=== PATIENT | male | born 1975 | race African-American/Black ===

== ENCOUNTER 2017-04-03 02:55 | Emergency (ER) | payer BC ==
[~2017-04-03] VITALS: Ht 185.4 cm; Wt 100.2 kg
[2017-04-03 02:59] VITALS: TEMP 36.6; Ht 185.4 cm; Wt 100.2 kg
--- NOTE | 2017-04-03 04:00 | EMERGENCY ROOM VISIT NOTE ---
History Report prepared by Holly: Dominik Hackett Under the Supervision of: Dr. Jillian Mills M.D. First contact with patient: 03:09 Chief Complaint: ARM PAIN Stated Complaint: TINGLING IN ARMS History of Present Illness The patient is a 41 year old male who presents to the Emergency Room with complaints of constant right arm tingling for the past two weeks. The patient additionally states that there is a shooting pain in his arm, and the pain is worsened when lifting the arm. He denies any chest pain or shortness of breath. The patient additionally states that he was having a cold sensation in his arm, and his leg had a similar tingling sensation yesterday. He states that he recently had a cold, and he has been coughing up phlegm for the past six weeks. He denies any difficulty walking or speaking. The patient additionally states that he was recently in [place], though the pain started before this trip. He states that he has no other medical problems. The patient denies any leg swelling or history of blood clots. Source of History: patient Onset: two weeks ago Position: arm (right) Quality: tingling, other (shooting) Timing: constant Associated Symptoms: + cough, No chest pain, No SOB Note: Associated symptoms: Leg tingling Review of Systems See HPI for pertinent positives & negatives. A total of 10 systems reviewed and were otherwise negative. Past Medical & Surgical Medical Problems: (1) Sleep apnea Social History Smoking Status: Never Smoker Marital Status: Housing Status: lives with family Occupation Status: employed Current/Historical Medications Scheduled Cefdinir (Omnicef), 300 MG PO Q12H Prednisone Tab (Prednisone), 10 MG PO DIRECTED Scheduled PRN Tramadol (Ultram), 1-2 TABS PO Q6 PRN for Pain Allergies Coded Allergies: Penicillins (Verified Allergy, Unknown, hives, 04/03/17) Physical Exam Vital Signs Date Time Temp Pulse Resp B/P (MAP) Pulse Ox O2 Delivery O2 Flow Rate FiO2 04/03/17 05:53 54 18 149/87 98 04/03/17 05:48 67 99 04/03/17 05:43 51 15 100 04/03/17 05:38 51 15 98 04/03/17 05:31 142/77 04/03/17 05:23 52 15 99 04/03/17 05:18 51 16 98 8/11/17 05:15 137/97 04/03/17 05:03 54 16 98 04/03/17 05:01 150/88 04/03/17 04:48 51 14 95 04/03/17 04:44 57 96 04/03/17 04:43 145/103 04/03/17 04:40 51 16 99 04/03/17 04:10 59 21 100 04/03/17 04:01 123/87 04/03/17 03:57 58 04/03/17 03:44 128/91 04/03/17 02:59 36.6 61 20 144/99 97 Room Air Physical Exam Vital signs reviewed. General: Well-appearing male, in no significant distress. HEENT: No scleral icterus, PERRLA, neck supple. Atraumatic. Cardiovascular: Regular rate and rhythm, no extra sounds. Pulmonary: Clear to auscultation bilaterally, normal work of breathing. Abdomen: Soft, nontender, nondistended, positive bowel sounds. Musculoskeletal: Atraumatic, no peripheral edema. Neurologic: Patient awake alert and oriented x 3, full strength in all 4 extremities. Cranial nerves 2 through 12 grossly intact. Skin: Warm, dry, no rash Medical Decision & Procedures ER Provider Diagnostic Interpretation: X-ray results as stated below per interpretation by me: CHEST: No acute abnormalities. No evidence of failure. No focal lung consolidation. CT results as stated below per my review and radiologist interpretation: CT HEAD: No acute intracranial hemorrhage. No evidence of intracranial mass, extra fluid collection, or acute territorial infarct. Mild paranasal sinus mucosal thickening. Small amount of fluid in maxillary sinuses. Correlate for sinusitis. CT C SPINE: C5-C6, posterior disc/osteophyte complex and uncovertebral osteophytes cause mild canal and mild to moderate foraminal narrowing. C6-C7, posterior disc/osteophyte complex causes mild canal narrowing. No evidence of fracture or subluxation. Laboratory Results 04/03/17 03:50 Red Blood Count 4.66, Mean Corpuscular Volume 92.5, Mean Corpuscular Hemoglobin 31.1, Mean Corpuscular Hemoglobin Concent 33.6, Mean Platelet Volume 12.0, Neutrophils (%) (Auto) 35.6, Lymphocytes (%) (Auto) 52.7, Monocytes (%) (Auto) 4.3, Eosinophils (%) (Auto) 6.9, Basophils (%) (Auto) 0.3, Neutrophils # (Auto) 2.07, Lymphocytes # (Auto) 3.07, Monocytes # (Auto) 0.25, Eosinophils # (Auto) 0.40, Basophils # (Auto) 0.02 04/03/17 03:50 Test 04/03/17 03:50 04/03/17 03:58 White Blood Count 5.82 K/uL (4.8-10.8) Red Blood Count 4.66 M/uL (4.7-6.1) Hemoglobin 14.5 g/dL (14.0-18.0) Hematocrit 43.1 % (42-52) Mean Corpuscular Volume 92.5 fL (80-100) Mean Corpuscular Hemoglobin 31.1 pg (25-34) Mean Corpuscular Hemoglobin Concent 33.6 g/dl (32-36) Platelet Count 149 K/uL (130-400) Mean Platelet Volume 12.0 fL (7.4-10.4) Neutrophils (%) (Auto) 35.6 % Lymphocytes (%) (Auto) 52.7 % Monocytes (%) (Auto) 4.3 % Eosinophils (%) (Auto) 6.9 % Basophils (%) (Auto) 0.3 % Neutrophils # (Auto) 2.07 K/uL (1.4-6.5) Lymphocytes # (Auto) 3.07 K/uL (1.2-3.4) Monocytes # (Auto) 0.25 K/uL (0.11-0.59) Eosinophils # (Auto) 0.40 K/uL (0-0.5) Basophils # (Auto) 0.02 K/uL (0-0.2) RDW Standard Deviation 43.2 fL (36.4-46.3) RDW Coefficient of Variation 12.9 % (11.5-14.5) Immature Granulocyte % (Auto) 0.2 % Immature Granulocyte # (Auto) 0.01 K/uL (0.00-0.02) Nucleated RBC Absolute Count (auto) 0.04 K/uL (0-0) Nucleated Red Blood Cells % 0.7 % Anion Gap 6.0 mmol/L (3-11) Est Creatinine Clear Calc Drug Dose 108.9 ml/min Estimated GFR () 95.5 Estimated GFR (Non- 82.4 BUN/Creatinine Ratio 9.3 (10-20) Calcium Level 8.6 mg/dl (8.5-10.1) Magnesium Level 2.2 mg/dl (1.8-2.4) Total Bilirubin 1.3 mg/dl (0.2-1) Direct Bilirubin 0.2 mg/dl (0-0.2) Aspartate Amino Transf (AST/SGOT) 21 U/L (15-37) Alanine Aminotransferase (ALT/SGPT) 32 U/L (12-78) Alkaline Phosphatase 73 U/L (45-117) Total Creatine Kinase 287 U/L (39-308) Creatine Kinase MB 0.6 ng/ml (0.5-3.6) Creatine Kinase MB Ratio 0.2 (0-3.0) Total Protein 7.3 gm/dl (6.4-8.2) Albumin 3.6 gm/dl (3.4-5.0) Thyroid Stimulating Hormone (TSH) 1.170 uIu/ml (0.300-4.500) Bedside Troponin I < 0.030 ng/ml (0-0.045) Laboratory results per my review. ECG Indication: other (Arm pain) Rate (beats per minute): 55 Rhythm: sinus bradycardia Findings: no acute ischemic change, other (T-wave flattening in the inferior and lateral leads) ED Course 0309: Past medical records reviewed. The patient was evaluated in room B12. A complete history and physical examination was performed. 0530: Upon reevaluation, the patient appeared to have improvement of his symptoms. I discussed findings with him. He verbalized agreement of the treatment plan. He was discharged home. Medical Decision Differential Diagnoses: Cervical radiculopathy, metabolic abnormality, CVA, paraesthesia, and peripheral nerve irritation This patient was evaluated and appeared to be in no significant distress. Physical examination is fairly unrevealing. EKG reveals a sinus bradycardia. CT scan of the head was performed due to the concern over right arm and right leg symptoms. CT scan is negative for acute intracranial findings. CT scan of the neck reveals foraminal narrowing and an osteophyte complex at the C5-C6 and C6-C7 levels. This is likely causing some cervical radiculopathy. The patient is also found to have maxillary sinus air-fluid levels which explains the patient's concerns over cold symptoms for 6 weeks. The patient will be placed on a prednisone taper which will likely address both radiculopathy and the sinusitis as well as Omnicef 10 days. Patient was informed of the findings. He was given a copy of his CT scan read by radiology. He'll follow-up with his primary care physician for reevaluation this week. He will return to the ER for worsening of symptoms or any medical concerns. Medication Reconcilliation Current Medication List: was personally reviewed by me Blood Pressure Screening Patient's blood pressure: Elevated blood pressure Blood pressure disposition: Referred to PCP Impression Primary Impression: Cervical radiculopathy Additional Impression: Sinusitis Scribe Attestation The scribe's documentation has been prepared under my direction and personally reviewed by me in its entirety. I confirm that the note above accurately reflects all work, treatment, procedures, and medical decision making performed by me. Departure Information Dispostion Home / Self-Care Prescriptions Prednisone Tab (PREDNISONE) 10 Mg Tab 10 MG PO DIRECTED, #31 TAB Prov: Jillian Mills M.D. 04/03/17 Tramadol (Ultram) 50 Mg Tab 1-2 TABS PO Q6 Y for Pain, #20 TAB Prov: Jillian Mills M.D. 04/03/17 Cefdinir (Omnicef) 300 Mg Cap 300 MG PO Q12H for 10 Days, #20 CAP Prov: Jillian Mills M.D. 04/03/17 Referrals Heather Lujan (PCP) Forms HOME CARE DOCUMENTATION FORM, IMPORTANT VISIT INFORMATION Patient Instructions My [facility] Additional Instructions Diagnosis: Cervical radiculopathy, sinusitis Prednisone 40 mg for 4 days, 30 mg for 3 days, 20 mg for 2 days, 10 mg for 2 days Omnicef 300 mg twice daily for 10 days. Watch for rash/allergic symptoms. If these occur, stop drug immediately Ultram 1-2 tabs every 6 hours as needed for pain. Follow up with your PCP this week for reevaluation. Have your blood pressure rechecked. Return to the ED for worsening of symptoms or any medical concerns. Problem Qualifiers
[2017-04-03 04:08] LABS: HEMATOCRIT 43.1 % (42-52); MEAN CELL VOLUME 92.5 fL (80-100); MEAN CORPUSCULAR HEMOGLOBIN 31.1 pg (25-34); MEAN CORPUSCULAR HGB CONC 33.6 g/dl (32-36); PLATELET COUNT 149 K/uL (130-400); RED BLOOD COUNT 4.66 M/uL (4.7-6.1); WHITE BLOOD COUNT 5.82 K/uL (4.8-10.8)
[2017-04-03 04:25] LABS: BUN/CREATININE RATIO 9.3 (10-20); CALCIUM 8.6 mg/dl (8.5-10.1); CREATININE 1.1 mg/dl (0.60-1.40); MAGNESIUM 2.2 mg/dl (1.8-2.4); POTASSIUM 3.6 mmol/L (3.5-5.1)
[2017-04-03 04:36] LABS: CKMB/CK RATIO 0.2 (0-3.0); THYROID STIMULATING HORMONE 1.17 uIu/ml (0.300-4.500)
[2017-04-03 05:08] LABS: BASO % 0.3 %; BASO ABS # 0.02 K/uL (0-0.2); COMPLETE YES; EOS % 6.9 %; IG% 0.2 %; LYMPH % 52.7 %; LYMPH ABS # 3.07 K/uL (1.2-3.4); MONO % 4.3 %; NEUT % 35.6 %
[2017-04-03] MEDS ORDERED: PRED10TA PO (05:49)
[2017-04-03] MEDS ORDERED: CEFD1CAP14 PO (05:49)
[2017-04-03] MEDS ORDERED: TRAM-10 PO (05:49)
[2017-04-03 05:53] VITALS: BP 149/87; PULSE 54; O2SAT 98
--- NOTE | 2017-04-03 06:35 | DIAGNOSTIC IMAGING REPORT ---
HEAD WITHOUT CONTRAST (CT) CT DOSE: 1154.02 mGy.cm HISTORY: Mental status change R arm and leg tingling/pain TECHNIQUE: Multiaxial CT images of the head were performed without the use of intravenous contrast. A dose lowering technique was utilized adhering to the principles of ALARA. Comparison: None. Findings: Mild mucosal thickening and air-fluid levels of the sinuses. The calvarium and skull base are intact. The ventricles and sulci are within normal limits. There is no mass, hematoma, midline shift, or acute infarct. Impression: No acute intracranial abnormality. Mild sinusitis. The above report was generated using voice recognition software. It may contain grammatical, syntax or spelling errors. Electronically signed by: Aakash Fuller M.D. 04/03/2017 6:34 AM Dictated Date/Time: 04/03/2017 6:33 AM
--- NOTE | 2017-04-03 06:36 | DIAGNOSTIC IMAGING REPORT ---
CHEST 2 VIEWS ROUTINE CLINICAL HISTORY: RUE pain chest pain COMPARISON STUDY: No previous studies for comparison. FINDINGS: Mild bibasilar interstitial prominence. Mid and upper lungs are considered clear. Mild cardiomegaly. Diaphragms are smooth. IMPRESSION: Mild bibasilar interstitial prominence. Mild cardiomegaly. The above report was generated using voice recognition software. It may contain grammatical, syntax or spelling errors. Electronically signed by: aAkash Fuller M.D. 04/03/2017 6:35 AM Dictated Date/Time: 04/03/2017 6:34 AM
--- NOTE | 2017-04-03 06:57 | DIAGNOSTIC IMAGING REPORT ---
CT OF THE CERVICAL SPINE CLINICAL HISTORY: Neck pain. Right arm paresthesias. COMPARISON STUDY: No previous studies for comparison. CT DOSE: TECHNIQUE: CT scan of the cervical spine was performed from the skull base to the thoracic inlet. Images are reviewed in the axial, sagittal, and coronal planes. IV contrast was not administered for this examination. A dose lowering technique was utilized adhering to the principles of ALARA. FINDINGS: The visualized portions of the lung apices reveal no evidence of pneumothorax. The prevertebral soft tissues are normal. No fractures or subluxations are visualized. There are multilevel degenerative changes. There is a small left paracentral C5-C6 disc osteophyte complex. There is minor bilateral foraminal narrowing. There is a very small disc osteophyte complex the C6-7 level. If there is concern the presence of disc pathology or cord pathology, an MRI of the cervical spine could be obtained in follow-up. IMPRESSION: No evidence of acute fracture or traumatic subluxation. Electronically signed by: Jimenez Meier M.D. 04/03/2017 6:56 AM Dictated Date/Time: 04/03/2017 6:53 AM
== END 2017-04-03 05:57 | disposition home or self-care (01) ==
LOC: C.EDB 02:55
DX: M54.12 Radiculopathy, cervical region (principal); J32.9 Chronic sinusitis, unspecified; R00.1 Bradycardia, unspecified; G47.39 Other sleep apnea; Z88.0 Allergy status to penicillin

== ENCOUNTER 2017-10-17 23:07 | Emergency (ER) | payer BC, OTHER ==
[~2017-10-17] VITALS: Ht 185.4 cm; Wt 100.0 kg
[2017-10-17 23:16] VITALS: TEMP 36.9; Ht 185.4 cm; Wt 100.0 kg
--- NOTE | 2017-10-17 23:43 | EMERGENCY ROOM VISIT NOTE ---
History Report prepared by Holly: Martha Chiu Under the Supervision of: Berna RenteriaO. First contact with patient: 23:31 Chief Complaint: ABDOMINAL PAIN Stated Complaint: REOCCURING ABD PAIN Nursing Triage Summary: Patient reports intermittent abdominal pain, does not have a bowel movement when the pain comes but it feels abnormal. Patient drank tea and seltzer water with no relief. Patient took a bunch of aspirin with no relief. Last normal BM yesterday. Patient also reports nausea. History of Present Illness The patient is a 42 year old male who presents to the Emergency Room with complaints of lower eft sided abdominal pain beginning at [employer]. He reports the pain is a 10/10 in severity and has been nauseous. He notes he had multiple sharp episodes but they were intermittent and would go away completely. He notes the pain would last for around two or three minutes. 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 Pt denies headache, change in vision, fevers, chest pain, shortness of breath, vomiting, diarrhea, pain with urination, and melena. No history of similar symptoms before. No recent trauma or change in activity. No recent medication use. 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 A total of 10 systems reviewed and were otherwise negative. Past Medical & Surgical Medical Problems: (1) Sleep apnea Family History FH: cancer FH: diabetes mellitus High blood pressure Social History Smoking Status: Never Smoker Marital Status: Housing Status: lives with family Occupation Status: employed Current/Historical Medications Scheduled Tamsulosin Hcl (Flomax), 0.4 MG PO DAILY Allergies Coded Allergies: Penicillins (Verified Allergy, Unknown, hives, 10/18/17) Physical Exam Vital Signs Date Time Temp Pulse Resp B/P (MAP) Pulse Ox O2 Delivery O2 Flow Rate FiO2 10/18/17 01:26 54 144/99 97 10/17/17 23:16 36.9 61 18 147/91 96 Room Air Physical Exam GENERAL: alert, well appearing, well nourished, no distress, non-toxic EYE EXAM: normal conjunctiva, PERRL and EOM's grossly intact OROPHARYNX: no exudate, no erythema, lips, buccal mucosa, and tongue normal and mucous membranes are moist NECK: supple, no nuchal rigidity, no adenopathy, non-tender LUNGS: Clear to auscultation. Normal chest wall mechanics HEART: no murmurs, S1 normal and S2 normal ABDOMEN: abdomen soft, non-tender, normo-active bowel sounds, no masses, no rebound or guarding. No reproducible left sided abdominal pain. BACK: Back is symmetrical on inspection and there is no deformity, no midline tenderness, no CVA tenderness. SKIN: no rashes and no bruising UPPER EXTREMITIES: upper extremities are grossly normal. LOWER EXTREMITIES: No pitting edema. NEURO EXAM: Normal sensorium, cranial nerves II-XII grossly intact, normal speech, no gross weakness of arms, no gross weakness of legs. Medical Decision & Procedures ER Provider Diagnostic Interpretation: Radiology results have been interpreted by the radiologist and reviewed by me. CT SCAN OF THE ABDOMEN AND PELVIS WITHOUT IV CONTRAST CLINICAL HISTORY: Left flank pain. COMPARISON STUDY: No priors. TECHNIQUE: CT scan of the abdomen and pelvis is performed from the lung bases to the proximal femora. Images are reviewed in the axial, sagittal, and coronal planes. IV contrast was not administered for this examination. A dose lowering technique was utilized adhering to the principles of ALARA. CT DOSE: 885.52 mGy.cm FINDINGS: Lung bases: The heart is normal in size and without pericardial effusion. The lung bases are clear. Liver: The unenhanced liver is normal in size, contour, and attenuation. There is no intrahepatic biliary ductal dilatation. 2 small cysts in the right lobe measure up to 9 mm. Gallbladder: Unremarkable. Spleen: Normal in size and attenuation. Pancreas: Unremarkable. Adrenal glands: Unremarkable. Kidneys: The unenhanced kidneys are normal in size. There is no right-sided hydronephrosis. There is mild fullness of the left renal collecting system. There are no renal calculi identified either kidney. There is a 4 moderate calcification in the left hemipelvis seen on the course of left ureter on image #395. It is unclear if this is located within or adjacent to the distal left ureter. Additional phleboliths are observed in the pelvis. There is no evidence of contour deforming renal mass lesion. Abdominal vasculature: The abdominal aorta is normal in course and caliber. Bowel: There is mild to moderate colonic fecal retention. No bowel obstruction is seen. The appendix is well-visualized and normal. Peritoneum: There is no intraperitoneal free air or abdominal ascites. There is a fat-containing umbilical hernia. Lymphadenopathy: None. Pelvic viscera: The bladder, prostate, and seminal vesicles are normal as visualized. Skeletal structures: No lytic or blastic lesions are seen. IMPRESSION: 1. No renal calculi are identified in either kidney. 2. There is mild fullness of the left renal pelvis of indeterminant significance. This may represent the sequelae of a recently passed kidney stone. There is a 4 mm calcification in the left pelvis either within or adjacent to the distal ureter. There are additional phleboliths seen in the pelvis, and a phlebolith is favored. An obstructing distal ureteral stone is considered less likely but not completely excluded. Correlation with clinical findings and urinalysis will be required. Consider short-term radiographic follow-up. 3. Additional findings as above. Electronically signed by: Efrain Baird M.D. 10/18/2017 12:46 AM Dictated Date/Time: 10/18/2017 12:35 AM Laboratory Results 10/18/17 00:00 Red Blood Count 4.76, Mean Corpuscular Volume 91.2, Mean Corpuscular Hemoglobin 30.5, Mean Corpuscular Hemoglobin Concent 33.4, Mean Platelet Volume 11.5, Neutrophils (%) (Auto) 65.4, Lymphocytes (%) (Auto) 28.3, Monocytes (%) (Auto) 3.5, Eosinophils (%) (Auto) 2.4, Basophils (%) (Auto) 0.2, Neutrophils # (Auto) 4.28, Lymphocytes # (Auto) 1.85, Monocytes # (Auto) 0.23, Eosinophils # (Auto) 0.16, Basophils # (Auto) 0.01 10/18/17 00:00 Test 10/17/17 23:55 10/18/17 00:00 Urine Color YELLOW Urine Appearance CLEAR (CLEAR) Urine pH 5.5 (4.5-7.5) Urine Specific [place] 1.020 (1.000-1.030) Urine Protein NEG (NEG) Urine Glucose (UA) NEG (NEG) Urine Ketones NEG (NEG) Urine Occult Blood TRACE (NEG) Urine Nitrite NEG (NEG) Urine Bilirubin NEG (NEG) Urine Urobilinogen NEG (NEG) Urine Leukocyte Esterase NEG (NEG) Urine WBC (Auto) 1-5 /hpf (0-5) Urine RBC (Auto) 0-4 /hpf (0-4) Urine Hyaline Casts (Auto) 0 /lpf (0-5) Urine Epithelial Cells (Auto) 0-5 /lpf (0-5) Urine Bacteria (Auto) NEG (NEG) White Blood Count 6.54 K/uL (4.8-10.8) Red Blood Count 4.76 M/uL (4.7-6.1) Hemoglobin 14.5 g/dL (14.0-18.0) Hematocrit 43.4 % (42-52) Mean Corpuscular Volume 91.2 fL (80-100) Mean Corpuscular Hemoglobin 30.5 pg (25-34) Mean Corpuscular Hemoglobin Concent 33.4 g/dl (32-36) Platelet Count 185 K/uL (130-400) Mean Platelet Volume 11.5 fL (7.4-10.4) Neutrophils (%) (Auto) 65.4 % Lymphocytes (%) (Auto) 28.3 % Monocytes (%) (Auto) 3.5 % Eosinophils (%) (Auto) 2.4 % Basophils (%) (Auto) 0.2 % Neutrophils # (Auto) 4.28 K/uL (1.4-6.5) Lymphocytes # (Auto) 1.85 K/uL (1.2-3.4) Monocytes # (Auto) 0.23 K/uL (0.11-0.59) Eosinophils # (Auto) 0.16 K/uL (0-0.5) Basophils # (Auto) 0.01 K/uL (0-0.2) RDW Standard Deviation 42.4 fL (36.4-46.3) RDW Coefficient of Variation 12.7 % (11.5-14.5) Immature Granulocyte % (Auto) 0.2 % Immature Granulocyte # (Auto) 0.01 K/uL (0.00-0.02) Anion Gap 7.0 mmol/L (3-11) Est Creatinine Clear Calc Drug Dose 95.5 ml/min Estimated GFR () 82.0 Estimated GFR (Non- 70.8 BUN/Creatinine Ratio 13.0 (10-20) Calcium Level 8.8 mg/dl (8.5-10.1) Total Bilirubin 1.4 mg/dl (0.2-1) Aspartate Amino Transf (AST/SGOT) 16 U/L (15-37) Alanine Aminotransferase (ALT/SGPT) 32 U/L (12-78) Alkaline Phosphatase 71 U/L (45-117) Total Protein 7.8 gm/dl (6.4-8.2) Albumin 4.0 gm/dl (3.4-5.0) Globulin 3.8 gm/dl (2.5-4.0) Albumin/Globulin Ratio 1.1 (0.9-2) Lipase 204 U/L (73-393) Laboratory results per my review. Medications Administered Medications (Trade) Dose Ordered Sig/Mynor Route Start Time Stop Time Status Last Admin Dose Admin Ketorolac Tromethamine (Toradol Inj) 30 mg NOW STAT IV 10/18/17 00:50 10/18/17 00:51 DC 10/18/17 01:08 30 MG Tamsulosin HCl (Flomax Cap) 0.4 mg NOW ONCE PO 10/18/17 01:00 10/18/17 01:01 DC 10/18/17 01:08 0.4 MG ED Course 2332: The patient was evaluated in room B7. A complete history and physical exam was performed. 0050: Toradol Inj 30 mg IV 0051: I rechecked the patient at this time and discussed his results with him. 0100: Flomax Ca 0.4 mg PO 0101: Upon reevaluation, the patient is feeling better. I discussed the findings and the treatment plan with the patient. He verbalizes agreement and understanding. He was discharged home. Medical Decision Differential diagnosis: Etiologies such as renal colic, appendicitis, diverticulitis, mesenteric ischemia, aortic pathology, infections, inflammatory bowel disease, PUD, biliary pathology, UTI, as well as others were entertained. Patient well-appearing here throughout. No recurrence of any pain. Labwork reassuring, urine with small amount of blood. Given findings on CT read as well as patient's presentation, I feel symptoms most suggestive of renal colic and kidney stone. No evidence of renal dysfunction, no concurrent infection noted. Patient hemodynamically stable. No prior history of stone, or prior history of hematuria for other reason. Discussed with patient close follow-up, usage of medications, increased water consumption, symptoms to watch and return for, he verbalized understanding was agreeable with plan. No other acute findings noted on imaging. Medication Reconcilliation Current Medication List: was personally reviewed by me Blood Pressure Screening Patient's blood pressure: Elevated blood pressure Blood pressure disposition: Elevated BP felt to be situational Impression Primary Impression: Left sided abdominal pain Additional Impressions: Hematuria Ureterolithiasis Scribe Attestation The scribe's documentation has been prepared under my direction and personally reviewed by me in its entirety. I confirm that the note above accurately reflects all work, treatment, procedures, and medical decision making performed by me. Departure Information Dispostion Home / Self-Care Prescriptions Tamsulosin Hcl (FLOMAX) 0.4 Mg Cap 0.4 MG PO DAILY, #10 CAP Prov: Bria Teran, DO 10/18/17 Referrals Heather Lujan (PCP) Patient Instructions My [facility] Additional Instructions Please call and follow up with your family doctor. Please use the urine strainer until you passed the stone. Please take the Flomax daily until you passed the kidney stone and then he may stop. You may use Tylenol or ibuprofen as needed for pain. Please do not take ibuprofen and an empty stomach. Please drink plenty of water. If you have any worsening pain, develop fevers or chills , vomiting, noticed a change in your urine or are unable to urinate, develop a change in bowel movements, or you have any other new concerns, please return to the emergency room. Problem Qualifiers Additional Impressions: Hematuria Hematuria type: unspecified type Qualified Codes: R31.9 - Hematuria, unspecified
[2017-10-18 00:18] LABS: BASO % 0.2 %; BASO ABS # 0.01 K/uL (0-0.2); EOS % 2.4 %; EOS ABS # 0.16 K/uL (0-0.5); HEMATOCRIT 43.4 % (42-52); HEMOGLOBIN 14.5 g/dL (14.0-18.0); IG# 0.01 K/uL (0.00-0.02); LYMPH % 28.3 %; LYMPH ABS # 1.85 K/uL (1.2-3.4); MEAN CELL VOLUME 91.2 fL (80-100); MEAN CORPUSCULAR HEMOGLOBIN 30.5 pg (25-34); MEAN CORPUSCULAR HGB CONC 33.4 g/dl (32-36); MEAN PLATELET VOLUME 11.5 fL (7.4-10.4); MONO % 3.5 %; MONO ABS # 0.23 K/uL (0.11-0.59); NEUT % 65.4 %; NEUT ABS # 4.28 K/uL (1.4-6.5); PLATELET COUNT 185 K/uL (130-400); RED CELL DISTRIBUTION WIDTH CV 12.7 % (11.5-14.5); RED CELL DISTRIBUTION WIDTH SD 42.4 fL (36.4-46.3); WHITE BLOOD COUNT 6.54 K/uL (4.8-10.8)
[2017-10-18 00:36] LABS: CALCIUM 8.8 mg/dl (8.5-10.1); CREATININE 1.24 mg/dl (0.60-1.40); POTASSIUM 3.9 mmol/L (3.5-5.1)
[2017-10-18 00:39] LABS: TOTAL PROTEIN 7.8 gm/dl (6.4-8.2)
--- NOTE | 2017-10-18 00:48 | DIAGNOSTIC IMAGING REPORT ---
CT SCAN OF THE ABDOMEN AND PELVIS WITHOUT IV CONTRAST CLINICAL HISTORY: Left flank pain. COMPARISON STUDY: No priors. TECHNIQUE: CT scan of the abdomen and pelvis is performed from the lung bases to the proximal femora. Images are reviewed in the axial, sagittal, and coronal planes. IV contrast was not administered for this examination. A dose lowering technique was utilized adhering to the principles of ALARA. CT DOSE: 885.52 mGy.cm FINDINGS: Lung bases: The heart is normal in size and without pericardial effusion. The lung bases are clear. Liver: The unenhanced liver is normal in size, contour, and attenuation. There is no intrahepatic biliary ductal dilatation. 2 small cysts in the right lobe measure up to 9 mm. Gallbladder: Unremarkable. Spleen: Normal in size and attenuation. Pancreas: Unremarkable. Adrenal glands: Unremarkable. Kidneys: The unenhanced kidneys are normal in size. There is no right-sided hydronephrosis. There is mild fullness of the left renal collecting system. There are no renal calculi identified either kidney. There is a 4 moderate calcification in the left hemipelvis seen on the course of left ureter on image #395. It is unclear if this is located within or adjacent to the distal left ureter. Additional phleboliths are observed in the pelvis. There is no evidence of contour deforming renal mass lesion. Abdominal vasculature: The abdominal aorta is normal in course and caliber. Bowel: There is mild to moderate colonic fecal retention. No bowel obstruction is seen. The appendix is well-visualized and normal. Peritoneum: There is no intraperitoneal free air or abdominal ascites. There is a fat-containing umbilical hernia. Lymphadenopathy: None. Pelvic viscera: The bladder, prostate, and seminal vesicles are normal as visualized. Skeletal structures: No lytic or blastic lesions are seen. IMPRESSION: 1. No renal calculi are identified in either kidney. 2. There is mild fullness of the left renal pelvis of indeterminant significance. This may represent the sequelae of a recently passed kidney stone. There is a 4 mm calcification in the left pelvis either within or adjacent to the distal ureter. There are additional phleboliths seen in the pelvis, and a phlebolith is favored. An obstructing distal ureteral stone is considered less likely but not completely excluded. Correlation with clinical findings and urinalysis will be required. Consider short-term radiographic follow-up. 3. Additional findings as above. Electronically signed by: Efrain Baird M.D. 10/18/2017 12:46 AM Dictated Date/Time: 10/18/2017 12:35 AM
[2017-10-18] MEDS ORDERED: KETOROLAC TROMETHAMINE 30 MG/ML VIAL IV STA (00:50)
[2017-10-18] MEDS ORDERED: TAMSULOSIN HCL 0.4 MG CAP PO ONE (01:00)
[2017-10-18] MEDS ORDERED: TAMS0.4C38 PO (01:06)
[2017-10-18 01:26] VITALS: BP 144/99; PULSE 54; O2SAT 97
== END 2017-10-18 01:26 | disposition home or self-care (01) ==
LOC: C.EDB 23:08
DX: R10.32 Left lower quadrant pain (principal); R31.9 Hematuria, unspecified; N20.1 Calculus of ureter; G47.30 Sleep apnea, unspecified; Z83.3 Family history of diabetes mellitus; Z88.0 Allergy status to penicillin

== ENCOUNTER 2017-10-22 15:46 | Inpatient (IN) | payer OTHER ==
[~2017-10-22] VITALS: Ht 182.9 cm; Wt 92.0 kg
[~2017-10-22 15:46] MED LIST: TAMS0.4C38 PO
[2017-10-22] MEDS ORDERED: SODIUM CHLORIDE 0.9% 1000ML 1,000 ML IV STA (16:19)
[2017-10-22] MEDS ORDERED: ONDANSETRON INJ 2 MG/ML 2 ML VIAL IV STA (16:29)
[2017-10-22] MEDS ORDERED: MoRPHine SULFATE 4 MG/ML 1 ML CARP\\VIAL IV STA (16:29)
[2017-10-22 16:55] LABS: EOS % 1.1 %; EOS ABS # 0.06 K/uL (0-0.5); HEMATOCRIT 46.3 % (42-52); HEMOGLOBIN 15.7 g/dL (14.0-18.0); IG# 0.01 K/uL (0.00-0.02); LYMPH % 26.8 %; LYMPH ABS # 1.51 K/uL (1.2-3.4); MEAN CELL VOLUME 91.7 fL (80-100); MEAN CORPUSCULAR HEMOGLOBIN 31.1 pg (25-34); MEAN CORPUSCULAR HGB CONC 33.9 g/dl (32-36); MEAN PLATELET VOLUME 12.4 fL (7.4-10.4); MONO % 6.2 %; MONO ABS # 0.35 K/uL (0.11-0.59); NEUT % 65.7 %; PLATELET COUNT 178 K/uL (130-400); RED CELL DISTRIBUTION WIDTH CV 13.1 % (11.5-14.5); RED CELL DISTRIBUTION WIDTH SD 43.7 fL (36.4-46.3); WHITE BLOOD COUNT 5.63 K/uL (4.8-10.8)
--- NOTE | 2017-10-22 17:05 | DIAGNOSTIC IMAGING REPORT ---
KUB CLINICAL HISTORY: 42 years-old Male presenting with L flank pain. TECHNIQUE: Single supine view of the abdomen was obtained. COMPARISON: CT from 10/18/2017. FINDINGS: Nonobstructive bowel gas pattern. No gross pneumoperitoneum. Allowing for bowel gas and stool, no calcifications to suggest nephrolithiasis. The previously noted suspected calculus in the region of the distal left ureter is likely still present. This projects adjacent to a phlebolith. Multiple additional pelvic phleboliths noted. Osseous structures normal. IMPRESSION: 1. Suspected distal left ureteral alveolus is likely still in place. The presence of multiple pelvic phleboliths somewhat complicates evaluation. Electronically signed by: Christopher Zhao M.D. 10/22/2017 5:03 PM Dictated Date/Time: 10/22/2017 5:01 PM
[2017-10-22 17:11] LABS: ALBUMIN 4.1 gm/dl (3.4-5.0); CALCIUM 9.4 mg/dl (8.5-10.1); CREATININE 1.69 mg/dl (0.60-1.40); POTASSIUM 3.2 mmol/L (3.5-5.1)
[2017-10-22 17:14] LABS: TOTAL PROTEIN 8.4 gm/dl (6.4-8.2)
--- NOTE | 2017-10-22 17:52 | DIAGNOSTIC IMAGING REPORT ---
(RENAL)RETROPERITON COMP CLINICAL HISTORY: 42 years-old Male presenting with L flank pain. TECHNIQUE: Real-time grayscale and limited color Doppler ultrasound imaging of the kidneys and bladder was performed. COMPARISON: CT from 10/18/2017. FINDINGS: Right kidney: Normal echogenicity of renal parenchyma. Right kidney measures 11.1 cm. No hydronephrosis. No convincing evidence of calculus or mass. Normal perfusion. Left kidney: Normal echogenicity of renal parenchyma. Left kidney measures 12.4 cm. Mild calyectasis. No convincing evidence of calculus or mass. Normal perfusion. Bladder: No bladder wall thickening. Left ureteral jet nonvisualized. Other: None. IMPRESSION: 1. Minimal left hydronephrosis with nonvisualization of the left ureteral jet suggesting obstruction. Electronically signed by: Chritsopher Zhao M.D. 10/22/2017 5:51 PM Dictated Date/Time: 10/22/2017 5:49 PM
[2017-10-22] MEDS ORDERED: HYDROmorphone INJ 1 MG/ML SYR IV STA (17:58)
[2017-10-22] MEDS ORDERED: MoRPHine SULFATE 4 MG/ML 1 ML CARP\\VIAL IV PRN (19:30)
[2017-10-22] MEDS ORDERED: ONDANSETRON INJ 2 MG/ML 2 ML VIAL IV PRN (19:30)
[2017-10-22] MEDS ORDERED: MoRPHine SULFATE 2 MG/ML CARP IV PRN (19:30)
[2017-10-22] MEDS ORDERED: ALUMINUM/MAGNESIUM/SIMETH (MAALOX MAX) 30 ML UDC PO PRN (19:30)
[2017-10-22] MEDS ORDERED: MAGNESIUM HYDROXIDE SUSP 30 ML UDC PO PRN (19:30)
[2017-10-22 20:15] VITALS: BP 125/80; PULSE 59; TEMP 36.8; Ht 182.9 cm; Wt 92.0 kg
[2017-10-22] MEDS ORDERED: HYDROmorphone INJ 1 MG/ML SYR IV PRN (20:15)
--- NOTE | 2017-10-22 20:32 | History and Physical ---
History & Physical Date & Time of Service: Oct 22, 2017 at 20:17 Chief Complaint: Renal Colic Primary Care Physician: Heather Lujan History of Present Illness 42-year-old generally healthy male who had evidence of a 4 mm left ureteral stone on October [address] scan the patient had persistence of colicky left-sided pain associated with nausea since that time the pain has been intense causing him to stop is doing and curl up in a ball having difficulty eating for mild nausea the patient however on most recent imaging cannot confirm or refute the fact that the stone may have moved. The patient has had a recent ultrasound showing minimal left hydronephrosis. Patient be brought into our facility for failure to manage renal colic pain hydration and evaluation by urology Family History FH: cancer FH: diabetes mellitus High blood pressure Social History Smoking Status: Never Smoker Alcohol Use: socially Marital Status: Occupational Status: employed Allergies Coded Allergies: Penicillins (Verified Allergy, Unknown, hives, 10/22/17) Tramadol (Unverified Adverse Reaction, Unknown, VOMITING, 10/22/17) Home Medications Scheduled Tamsulosin Hcl (Flomax), 0.4 MG PO DAILY Review of Systems ROS: well nourished well developed. No double vision blurry vision No problems with speech or swallowing No palpitations, chest pain or pressure No Wheezing or breathing issues Left-sided colicky abdominal pain that radiates to his left back mild nausea but no vomiting diarrhea and no changes in appetite or weight No burning urine but he does have some urine frequency but no changes in color or smell No focal joint pain or muscle pain No skin rashes or oral lesions No unusual bruising or bleeding Left sided focused back pain but no numbness or loss of strength No changes in memory or confusion Physical Exam Vital Signs Date Time Temp Pulse Resp B/P (MAP) Pulse Ox O2 Delivery O2 Flow Rate FiO2 10/22/17 20:03 36.4 67 18 131/74 97 10/22/17 19:18 67 18 131/74 97 Room Air 10/22/17 19:18 97 Room Air 10/22/17 18:34 95 Room Air 10/22/17 18:30 69 20 150/90 98 10/22/17 16:03 36.4 99 20 99 Room Air General Appearance: WD/WN, + moderate distress Eyes: normal inspection, sclerae normal Neck: supple, thyroid normal Respiratory/Chest: chest non-tender, lungs clear, normal breath sounds (Some splinting on his left side due to pain) Cardiovascular: regular rate, rhythm, normal peripheral pulses Abdomen/GI: normal bowel sounds, soft, + tenderness, + guarding Back: no muscle spasm, + left CVA tenderness Extremities/Musculoskelatal: no pedal edema, normal range of motion Neurologic/Psych: alert, oriented x 3 Diagnostics Laboratory Results Results Past 24 Hours Test 10/22/17 16:35 10/22/17 18:05 Range/Units White Blood Count 5.63 4.8-10.8 K/uL Red Blood Count 5.05 4.7-6.1 M/uL Hemoglobin 15.7 14.0-18.0 g/dL Hematocrit 46.3 42-52 % Mean Corpuscular Volume 91.7 80-100 fL Mean Corpuscular Hemoglobin 31.1 25-34 pg Mean Corpuscular Hemoglobin Concent 33.9 32-36 g/dl Platelet Count 178 130-400 K/uL Mean Platelet Volume 12.4 7.4-10.4 fL Neutrophils (%) (Auto) 65.7 % Lymphocytes (%) (Auto) 26.8 % Monocytes (%) (Auto) 6.2 % Eosinophils (%) (Auto) 1.1 % Basophils (%) (Auto) 0.0 % Neutrophils # (Auto) 3.70 1.4-6.5 K/uL Lymphocytes # (Auto) 1.51 1.2-3.4 K/uL Monocytes # (Auto) 0.35 0.11-0.59 K/uL Eosinophils # (Auto) 0.06 0-0.5 K/uL Basophils # (Auto) 0.00 0-0.2 K/uL RDW Standard Deviation 43.7 36.4-46.3 fL RDW Coefficient of Variation 13.1 11.5-14.5 % Immature Granulocyte % (Auto) 0.2 % Immature Granulocyte # (Auto) 0.01 0.00-0.02 K/uL Sodium Level 138 136-145 mmol/L Potassium Level 3.2 3.5-5.1 mmol/L Chloride Level 101 98-107 mmol/L Carbon Dioxide Level 30 21-32 mmol/L Anion Gap 6.0 3-11 mmol/L Blood Urea Nitrogen 13 7-18 mg/dl Creatinine 1.69 0.60-1.40 mg/dl Est Creatinine Clear Calc Drug Dose 61.9 ml/min Estimated GFR () 56.4 Estimated GFR (Non- 48.7 BUN/Creatinine Ratio 7.8 10-20 Random Glucose 95 70-99 mg/dl Calcium Level 9.4 8.5-10.1 mg/dl Total Bilirubin 1.7 0.2-1 mg/dl Aspartate Amino Transf (AST/SGOT) 14 15-37 U/L Alanine Aminotransferase (ALT/SGPT) 23 12-78 U/L Alkaline Phosphatase 76 45-117 U/L Total Protein 8.4 6.4-8.2 gm/dl Albumin 4.1 3.4-5.0 gm/dl Globulin 4.3 2.5-4.0 gm/dl Albumin/Globulin Ratio 1.0 0.9-2 Urine Color YELLOW Urine Appearance CLEAR CLEAR Urine pH 5.0 4.5-7.5 Urine Specific [place] 1.012 1.000-1.030 Urine Protein TRACE NEG Urine Glucose (UA) NEG NEG Urine Ketones NEG NEG Urine Occult Blood NEG NEG Urine Nitrite NEG NEG Urine Bilirubin NEG NEG Urine Urobilinogen NEG NEG Urine Leukocyte Esterase NEG NEG Urine WBC (Auto) 1-5 0-5 /hpf Urine RBC (Auto) 0-4 0-4 /hpf Urine Hyaline Casts (Auto) 1-5 0-5 /lpf Urine Epithelial Cells (Auto) 5-10 0-5 /lpf Urine Bacteria (Auto) NEG NEG Diagnostic Radiology Review of KUB cannot confirm or refute a stone review ultrasound shows mild left hydronephrosis Impression Assessment and Plan 42-year-old male with recent identification of kidney stone presenting with what sounds like persistent renal colic This patient renal colic needs parenteral pain medication and aggressive hydration we will strain all urine have a urology consult since the stone cannot be identified the colic may be from his mild hydronephrosis will attempt to improve this with Flomax Patient's DVT prevention will be heparin Resuscitation Status VTE Prophylaxis Will order VTE Prophylaxis: Yes
[2017-10-22 21:59] LABS: INR 1.1 (0.9-1.1)
[2017-10-22] MEDS: SODIUM CHLORIDE 0.9% 1000ML 1,000 ML IV SCH (22:16)
[2017-10-22] MEDS: ACETAMINOPHEN 325 MG TAB PO PRN (22:17)
[2017-10-22] MEDS: KETOROLAC TROMETHAMINE 30 MG/ML VIAL IV PRN (22:18)
[2017-10-22 22:50] VITALS: BP 118/73; PULSE 74; TEMP 36.4; O2SAT 94
[2017-10-22] MEDS: HEPARIN SOD 5000 UNIT/0.5 ML CARP SQ SCH (23:45)
--- NOTE | 2017-10-23 04:59 | EMERGENCY ROOM VISIT NOTE ---
History First contact with patient: 16:05 Chief Complaint: KIDNEY STONE Stated Complaint: RENAL COLIC History of Present Illness The patient is a 42 year old male who presents to the Emergency Room via private vehicle with complaints of "kidney stone". The patient states that he was seen here recently on Thursday and diagnosed with a kidney stone. He states this is the first time he has had them. He notes that he was doing well with the At Home pain medications until about 2 hours ago when now the pain is much worse than previously. It is in the left flank region. He rates the pain as a 10/10. There is associated nausea but no vomiting. No fever. No hematuria or urinary symptoms. Prior to arrival he has had 2 hydrocodone this afternoon. There has been no relief of his pain. Review of Systems A complete 10-point Review of Systems was discussed with the patient, with pertinent positives and negatives listed in the History of Present Illness. All remaining Review of Systems questions can be considered negative unless otherwise specified. Past Medical/Surgical History Medical Problems: (1) Renal colic (2) Sleep apnea Family History FH: cancer FH: diabetes mellitus High blood pressure Social History Smoking Status: Never Smoker Marital Status: Housing Status: lives with family Occupation Status: employed Current/Historical Medications Scheduled Tamsulosin Hcl (Flomax), 0.4 MG PO DAILY Physical Exam Vital Signs Date Time Temp Pulse Resp B/P (MAP) Pulse Ox O2 Delivery O2 Flow Rate FiO2 10/22/17 19:18 67 18 131/74 97 Room Air 10/22/17 19:18 97 Room Air 10/22/17 18:34 95 Room Air 10/22/17 18:30 69 20 150/90 98 10/22/17 16:03 36.4 99 20 99 Room Air Physical Exam VITAL SIGNS - Vital signs and nursing notes were reviewed. Stable. GENERAL -42-year-old male appearing his stated age who is in no acute distress but does appear to be in pain. Communicates well with provider and answers questions appropriately. SKIN - Without rashes. HEAD - NC/AT. EYES - Sclera anicteric. ABDOMEN - Abdominal contour normal without pulsations or visible masses. No tenderness, palpable masses, hepatosplenomegaly, or ascites noted. PSYCH - Pt is very pleasant and interacts well with examiner. Medical Decision & Procedures ER Provider Diagnostic Interpretation: KUB CLINICAL HISTORY: 42 years-old Male presenting with L flank pain. TECHNIQUE: Single supine view of the abdomen was obtained. COMPARISON: CT from 10/18/2017. FINDINGS: Nonobstructive bowel gas pattern. No gross pneumoperitoneum. Allowing for bowel gas and stool, no calcifications to suggest nephrolithiasis. The previously noted suspected calculus in the region of the distal left ureter is likely still present. This projects adjacent to a phlebolith. Multiple additional pelvic phleboliths noted. Osseous structures normal. IMPRESSION: 1. Suspected distal left ureteral alveolus is likely still in place. The presence of multiple pelvic phleboliths somewhat complicates evaluation. Electronically signed by: Christopher Zhao M.D. 10/22/2017 5:03 PM Dictated Date/Time: 10/22/2017 5:01 PM (RENAL)RETROPERITON COMP CLINICAL HISTORY: 42 years-old Male presenting with L flank pain. TECHNIQUE: Real-time grayscale and limited color Doppler ultrasound imaging of the kidneys and bladder was performed. COMPARISON: CT from 10/18/2017. FINDINGS: Right kidney: Normal echogenicity of renal parenchyma. Right kidney measures 11.1 cm. No hydronephrosis. No convincing evidence of calculus or mass. Normal perfusion. Left kidney: Normal echogenicity of renal parenchyma. Left kidney measures 12.4 cm. Mild calyectasis. No convincing evidence of calculus or mass. Normal perfusion. Bladder: No bladder wall thickening. Left ureteral jet nonvisualized. Other: None. IMPRESSION: 1. Minimal left hydronephrosis with nonvisualization of the left ureteral jet suggesting obstruction. Electronically signed by: Christopher Zhao M.D. 10/22/2017 5:51 PM Dictated Date/Time: 10/22/2017 5:49 PM Laboratory Results 10/22/17 16:35 Red Blood Count 5.05, Mean Corpuscular Volume 91.7, Mean Corpuscular Hemoglobin 31.1, Mean Corpuscular Hemoglobin Concent 33.9, Mean Platelet Volume 12.4, Neutrophils (%) (Auto) 65.7, Lymphocytes (%) (Auto) 26.8, Monocytes (%) (Auto) 6.2, Eosinophils (%) (Auto) 1.1, Basophils (%) (Auto) 0.0, Neutrophils # (Auto) 3.70, Lymphocytes # (Auto) 1.51, Monocytes # (Auto) 0.35, Eosinophils # (Auto) 0.06, Basophils # (Auto) 0.00 10/22/17 16:35 Test 10/22/17 16:35 10/22/17 18:05 White Blood Count 5.63 K/uL (4.8-10.8) Red Blood Count 5.05 M/uL (4.7-6.1) Hemoglobin 15.7 g/dL (14.0-18.0) Hematocrit 46.3 % (42-52) Mean Corpuscular Volume 91.7 fL (80-100) Mean Corpuscular Hemoglobin 31.1 pg (25-34) Mean Corpuscular Hemoglobin Concent 33.9 g/dl (32-36) Platelet Count 178 K/uL (130-400) Mean Platelet Volume 12.4 fL (7.4-10.4) Neutrophils (%) (Auto) 65.7 % Lymphocytes (%) (Auto) 26.8 % Monocytes (%) (Auto) 6.2 % Eosinophils (%) (Auto) 1.1 % Basophils (%) (Auto) 0.0 % Neutrophils # (Auto) 3.70 K/uL (1.4-6.5) Lymphocytes # (Auto) 1.51 K/uL (1.2-3.4) Monocytes # (Auto) 0.35 K/uL (0.11-0.59) Eosinophils # (Auto) 0.06 K/uL (0-0.5) Basophils # (Auto) 0.00 K/uL (0-0.2) RDW Standard Deviation 43.7 fL (36.4-46.3) RDW Coefficient of Variation 13.1 % (11.5-14.5) Immature Granulocyte % (Auto) 0.2 % Immature Granulocyte # (Auto) 0.01 K/uL (0.00-0.02) Anion Gap 6.0 mmol/L (3-11) Est Creatinine Clear Calc Drug Dose 61.9 ml/min Estimated GFR () 56.4 Estimated GFR (Non- 48.7 BUN/Creatinine Ratio 7.8 (10-20) Calcium Level 9.4 mg/dl (8.5-10.1) Total Bilirubin 1.7 mg/dl (0.2-1) Aspartate Amino Transf (AST/SGOT) 14 U/L (15-37) Alanine Aminotransferase (ALT/SGPT) 23 U/L (12-78) Alkaline Phosphatase 76 U/L (45-117) Total Protein 8.4 gm/dl (6.4-8.2) Albumin 4.1 gm/dl (3.4-5.0) Globulin 4.3 gm/dl (2.5-4.0) Albumin/Globulin Ratio 1.0 (0.9-2) Urine Color YELLOW Urine Appearance CLEAR (CLEAR) Urine pH 5.0 (4.5-7.5) Urine Specific [place] 1.012 (1.000-1.030) Urine Protein TRACE (NEG) Urine Glucose (UA) NEG (NEG) Urine Ketones NEG (NEG) Urine Occult Blood NEG (NEG) Urine Nitrite NEG (NEG) Urine Bilirubin NEG (NEG) Urine Urobilinogen NEG (NEG) Urine Leukocyte Esterase NEG (NEG) Urine WBC (Auto) 1-5 /hpf (0-5) Urine RBC (Auto) 0-4 /hpf (0-4) Urine Hyaline Casts (Auto) 1-5 /lpf (0-5) Urine Epithelial Cells (Auto) 5-10 /lpf (0-5) Urine Bacteria (Auto) NEG (NEG) Medications Administered Medications (Trade) Dose Ordered Sig/M[place] Route Start Time Stop Time Status Last Admin Dose Admin Sodium Chloride 1,000 ml @ 999 mls/hr Q1H1M STAT IV 10/22/17 16:19 10/22/17 17:19 DC 10/22/17 16:39 999 MLS/HR Morphine Sulfate (MoRPHine SULFATE INJ) 4 mg NOW STAT IV 10/22/17 16:29 10/22/17 20:16 DC 10/22/17 16:38 4 MG Ondansetron HCl (Zofran Inj) 4 mg NOW STAT IV 10/22/17 16:29 10/22/17 16:30 DC 10/22/17 16:38 4 MG Hydromorphone HCl (Dilaudid Inj) 1 mg NOW STAT IV 10/22/17 17:58 10/22/17 17:59 DC 10/22/17 18:27 1 MG Medical Decision Patient was seen and evaluated as above. He presents to us today with left- sided flank pain. He was seen here on Thursday and diagnosed with a kidney stone via CT. It was difficult to appreciate on that exam. He certainly presents today clinically as if he has a slight movement of the stone. After obtaining a thorough history and physical examination the above work up was performed. He was given morphine and Zofran fluids and Dilaudid after the initial round of pain medication did not work. He was reevaluated and feeling much better. No concerning leukocytosis or anemia. Coags normal. Patient metabolic panel reveals sodium low at 3.2. Creatinine high at 1.69. Total bilirubin high at 1.7. Urine negative. Because of the patient's poor pain control at home it was suggested that perhaps inpatient management would be warranted after talking with the patient. Patient prefers to stay in the hospital for his pain. I believe this is reasonable. I discussed the case with the hospitalist. Patient will be admitted for further evaluation and management. Please refer to further documentation regarding his stay. In the evaluation and treatment of this patient the following differential diagnoses were entertained: Renal calculi, renal colic, ureteral calculi, appendicitis, AAA, among others. Impression Primary Impression: Left flank pain Additional Impressions: Ureteral stone Hypokalemia Departure Information Dispostion Still a Patient Condition FAIR Referrals Heather Lujan (PCP) Forms HOME CARE DOCUMENTATION FORM, IMPORTANT VISIT INFORMATION Patient Instructions My [facility] Problem Qualifiers
[2017-10-23] MEDS: SODIUM CHLORIDE 0.9% 1000ML 1,000 ML IV SCH ×4 (08:21→23:33)
--- NOTE | 2017-10-23 08:50 | Hospitalist Progress Note ---
Hospitalist Progress Note Date of Service Oct 23, 2017. Subjective Pt evaluation today including: conversation w/ patient, conversation w/ family , physical exam, chart review, lab review, review of studies Pain: mild PO Intake: good Voiding: no voiding problems The patient was seen and examined this morning. Pt reports doing much better now than last evening. His pain is well controlled with dilaudid. He has been seen by urology - doing a voiding trial with aggressive fluids to attempt to get stone to pass. Repeat imaging planned for the morning. No urological procedure. His was present at bedside and updated, all their questions and concerns were addressed. ROS: 6 point ROS reviewed and negative. Objective Vital Signs Date Time Temp Pulse Resp B/P (MAP) Pulse Ox O2 Delivery O2 Flow Rate FiO2 10/23/17 00:00 Room Air 10/22/17 22:50 36.4 74 18 118/73 (88) 94 Room Air 10/22/17 20:15 36.8 59 18 125/80 Room Air 10/22/17 20:03 36.4 67 18 131/74 97 10/22/17 19:18 67 18 131/74 97 Room Air 10/22/17 19:18 97 Room Air 10/22/17 18:34 95 Room Air 10/22/17 18:30 69 20 150/90 98 10/22/17 16:03 36.4 99 20 99 Room Air Physical Exam General Appearance: WD/WN, no apparent distress, + pertinent finding ( male) Eyes: PERRL, EOMI ENT: hearing grossly normal, pharynx normal Neck: supple, no JVD Respiratory/Chest: lungs clear, no respiratory distress, no accessory muscle use Cardiovascular: regular rate, rhythm, no murmur Abdomen: normal bowel sounds, non tender, soft Extremities: non-tender, no pedal edema, no calf tenderness Neurologic/Psychiatric: alert, normal mood/affect, oriented x 3 Skin: normal color, warm/dry Notes: Back: no CVA tenderness Laboratory Results Last 24 Hours Test 10/22/17 16:35 10/22/17 18:05 10/22/17 21:15 White Blood Count 5.63 K/uL Red Blood Count 5.05 M/uL Hemoglobin 15.7 g/dL Hematocrit 46.3 % Mean Corpuscular Volume 91.7 fL Mean Corpuscular Hemoglobin 31.1 pg Mean Corpuscular Hemoglobin Concent 33.9 g/dl Platelet Count 178 K/uL Mean Platelet Volume 12.4 fL Neutrophils (%) (Auto) 65.7 % Lymphocytes (%) (Auto) 26.8 % Monocytes (%) (Auto) 6.2 % Eosinophils (%) (Auto) 1.1 % Basophils (%) (Auto) 0.0 % Neutrophils # (Auto) 3.70 K/uL Lymphocytes # (Auto) 1.51 K/uL Monocytes # (Auto) 0.35 K/uL Eosinophils # (Auto) 0.06 K/uL Basophils # (Auto) 0.00 K/uL RDW Standard Deviation 43.7 fL RDW Coefficient of Variation 13.1 % Immature Granulocyte % (Auto) 0.2 % Immature Granulocyte # (Auto) 0.01 K/uL Sodium Level 138 mmol/L Potassium Level 3.2 mmol/L Chloride Level 101 mmol/L Carbon Dioxide Level 30 mmol/L Anion Gap 6.0 mmol/L Blood Urea Nitrogen 13 mg/dl Creatinine 1.69 mg/dl Est Creatinine Clear Calc Drug Dose 61.9 ml/min Estimated GFR () 56.4 Estimated GFR (Non- 48.7 BUN/Creatinine Ratio 7.8 Random Glucose 95 mg/dl Calcium Level 9.4 mg/dl Total Bilirubin 1.7 mg/dl Aspartate Amino Transf (AST/SGOT) 14 U/L Alanine Aminotransferase (ALT/SGPT) 23 U/L Alkaline Phosphatase 76 U/L Total Protein 8.4 gm/dl Albumin 4.1 gm/dl Globulin 4.3 gm/dl Albumin/Globulin Ratio 1.0 Urine Color YELLOW Urine Appearance CLEAR Urine pH 5.0 Urine Specific [place] 1.012 Urine Protein TRACE Urine Glucose (UA) NEG Urine Ketones NEG Urine Occult Blood NEG Urine Nitrite NEG Urine Bilirubin NEG Urine Urobilinogen NEG Urine Leukocyte Esterase NEG Urine WBC (Auto) 1-5 /hpf Urine RBC (Auto) 0-4 /hpf Urine Hyaline Casts (Auto) 1-5 /lpf Urine Epithelial Cells (Auto) 5-10 /lpf Urine Bacteria (Auto) NEG Prothrombin Time 11.1 SECONDS Prothromb Time International Ratio 1.1 Assessment and Plan 42 yo M with left nephrolithiasis and renal colic - Admitted to med/surg - KUB reviewed IMPRESSION: 1. Suspected distal left ureteral alveolus is likely still in place. The presence of multiple pelvic phleboliths somewhat complicates evaluation. - Urology consulted - no plans for intervention Continue aggressive hydration, strain all urine, flomax - repeat imaging tomorrow morning for possible stent placement if no change in stone location. - Pain control with dilaudid 0.5-1 mg Q4H prn, toradol IV DVT ppx: heparin subq CODE STATUS: FULL code
[2017-10-23 08:51] VITALS: BP 138/88; PULSE 54; TEMP 36.8; O2SAT 98
[2017-10-23] MEDS: HEPARIN SOD 5000 UNIT/0.5 ML CARP SQ SCH ×2 (10:00→21:45)
[2017-10-23 10:54] VITALS: O2SAT 98
[2017-10-23] MEDS: KETOROLAC TROMETHAMINE 30 MG/ML VIAL IV PRN ×2 (11:19→21:17)
[2017-10-23] MEDS: TAMSULOSIN HCL 0.4 MG CAP PO SCH (11:19)
--- NOTE | 2017-10-23 13:16 | Urology Consultation ---
History General Date of Service: Oct 23, 2017. Chief Complaint: left flank pain Primary Care Physician: Heather Lujan. Pt seen a urologist before?: No History of Present Illness 42 yo healthy male admitted to [facility] with c/o left flank pain and n/v. He reports experiencing pain for almost 1 week. He did go to [facility] ED on 10-17, and CT scan showed dilation of the left collecting system with ? 4mm distal left ureteral stone. Pt returned to [facility] yesterday for worsening pain and n/v. Stone difficult to visualize on KUB d/t multiple left pelvic calcifications. Renal u/s showing minimal left hydro noted. The pt reports his pain currently is improved, but continues to have intermittent pain. Denies dysuria, hematuria, n/v, or f/c this morning. He is afebrile. White count is normal. Cr noted to be elevated at 1.69. Imaging Imaging: CT, KUB, Ultrasound Laboratory Last 24 Hours Test 10/22/17 16:35 10/22/17 18:05 10/22/17 21:15 White Blood Count 5.63 K/uL Red Blood Count 5.05 M/uL Hemoglobin 15.7 g/dL Hematocrit 46.3 % Mean Corpuscular Volume 91.7 fL Mean Corpuscular Hemoglobin 31.1 pg Mean Corpuscular Hemoglobin Concent 33.9 g/dl Platelet Count 178 K/uL Mean Platelet Volume 12.4 fL Neutrophils (%) (Auto) 65.7 % Lymphocytes (%) (Auto) 26.8 % Monocytes (%) (Auto) 6.2 % Eosinophils (%) (Auto) 1.1 % Basophils (%) (Auto) 0.0 % Neutrophils # (Auto) 3.70 K/uL Lymphocytes # (Auto) 1.51 K/uL Monocytes # (Auto) 0.35 K/uL Eosinophils # (Auto) 0.06 K/uL Basophils # (Auto) 0.00 K/uL RDW Standard Deviation 43.7 fL RDW Coefficient of Variation 13.1 % Immature Granulocyte % (Auto) 0.2 % Immature Granulocyte # (Auto) 0.01 K/uL Sodium Level 138 mmol/L Potassium Level 3.2 mmol/L Chloride Level 101 mmol/L Carbon Dioxide Level 30 mmol/L Anion Gap 6.0 mmol/L Blood Urea Nitrogen 13 mg/dl Creatinine 1.69 mg/dl Est Creatinine Clear Calc Drug Dose 61.9 ml/min Estimated GFR () 56.4 Estimated GFR (Non- 48.7 BUN/Creatinine Ratio 7.8 Random Glucose 95 mg/dl Calcium Level 9.4 mg/dl Total Bilirubin 1.7 mg/dl Aspartate Amino Transf (AST/SGOT) 14 U/L Alanine Aminotransferase (ALT/SGPT) 23 U/L Alkaline Phosphatase 76 U/L Total Protein 8.4 gm/dl Albumin 4.1 gm/dl Globulin 4.3 gm/dl Albumin/Globulin Ratio 1.0 Urine Color YELLOW Urine Appearance CLEAR Urine pH 5.0 Urine Specific [place] 1.012 Urine Protein TRACE Urine Glucose (UA) NEG Urine Ketones NEG Urine Occult Blood NEG Urine Nitrite NEG Urine Bilirubin NEG Urine Urobilinogen NEG Urine Leukocyte Esterase NEG Urine WBC (Auto) 1-5 /hpf Urine RBC (Auto) 0-4 /hpf Urine Hyaline Casts (Auto) 1-5 /lpf Urine Epithelial Cells (Auto) 5-10 /lpf Urine Bacteria (Auto) NEG Prothrombin Time 11.1 SECONDS Prothromb Time International Ratio 1.1 Problem List Medical Problems: (1) Cervical radiculopathy Status: Acute (2) Hematuria Status: Acute (3) Hypokalemia Status: Acute (4) Left flank pain Status: Acute (5) Left sided abdominal pain Status: Acute (6) Sinusitis Status: Acute (7) Ureteral stone Status: Acute (8) Ureterolithiasis Status: Acute Past History no pertinent history Past Surgical History: no surgical history Family History FH: cancer FH: diabetes mellitus High blood pressure Social History Hx Tobacco Use In Past Year?: No Smoking: non-smoker Alcohol: socially Marital status: Housing status: lives with family Occupation status: employed Allergies Coded Allergies: Penicillins (Verified Allergy, Unknown, hives, 10/22/17) Tramadol (Unverified Adverse Reaction, Unknown, VOMITING, 10/22/17) Medications Home Medications: Home Meds and Scripts Medications Dose Route/Sig Max Daily Dose Days Date Category Flomax (Tamsulosin Hcl) 0.4 Mg Cap 0.4 Mg PO DAILY 10/18/17 Rx Inpatient Medications: Current Inpatient Medications Medications (Trade) Dose Ordered Sig/Mynor Route Start Time Stop Time Status Last Admin Dose Admin Acetaminophen (Tylenol Tab) 650 mg Q4H PRN PO 10/22/17 19:30 11/21/17 19:29 10/22/17 22:17 650 MG Al Hydrox/Mg Hydrox/Simethicone (Maalox Max Susp) 15 ml Q4H PRN PO 10/22/17 19:30 11/21/17 19:29 Magnesium Hydroxide (Milk Of Magnesia Susp) 30 ml Q6H PRN PO 10/22/17 19:30 11/21/17 19:29 Ondansetron HCl (Zofran Inj) 4 mg Q6H PRN IV 10/22/17 19:30 11/21/17 19:29 Heparin Sodium (Porcine) (Heparin Sq 5000 Unit/0.5ml) 5,000 unit Q12H SQ 10/22/17 22:00 11/21/17 21:59 Morphine Sulfate (MoRPHine SULFATE INJ) 4 mg Q4H PRN IV 10/22/17 19:30 11/05/17 19:29 Sodium Chloride 1,000 ml @ 200 mls/hr Q5H IV 10/22/17 20:30 11/21/17 20:29 10/23/17 08:21 200 MLS/HR Ketorolac Tromethamine (Toradol Inj) 30 mg Q6H PRN IV 10/22/17 19:30 10/27/17 19:29 10/23/17 11:19 30 MG Tamsulosin HCl (Flomax Cap) 0.4 mg DAILY PO 10/23/17 09:00 11/22/17 08:59 10/23/17 11:19 0.4 MG Hydromorphone HCl (Dilaudid Inj) 0.5 mg Q4 PRN IV 10/22/17 20:15 11/05/17 20:14 Hydromorphone HCl (Dilaudid Inj) 1 mg Q4 PRN IV 10/22/17 20:15 11/05/17 20:14 Review of Systems Review of Systems Constitutional: No fever, No chills Eyes: No double vision Neurological: No dizzy Endocrine: No excessive thirst Gastrointestinal: + abdominal pain (left flank and lower abdominal intermittent pain ), No nausea, No vomiting Cardiovascular: No chest pain Respiratory: No shortness of breath Skin: No rash Musculoskeletal: + back pain (left low back ) Male : No painful urination, No blood in urine Physical Exam Vital Signs: Vital Signs Past 12 Hours Date Time Temp Pulse Resp B/P (MAP) Pulse Ox O2 Delivery O2 Flow Rate FiO2 10/23/17 10:54 98 Room Air 10/23/17 08:51 36.8 54 14 138/88 (105) 98 Room Air Physical Exam: General Appearance: no apparent distress Eyes: bilateral eyes normal inspection ENT: hearing grossly normal Neck: no JVD Respiratory/Chest: no respiratory distress, no accessory muscle use Cardiovascular: no JVD Extremities: normal inspection Neurologic/Psychiatric: alert, normal mood/affect, oriented x 3 Skin: normal color Assessment & Plan Assessment & Plan A/P: Left flank pain, suspected renal colic AFVSS. Pt seen and assessed by myself and Dr. Castaneda this afternoon. Suspect he is passing a stone. Will attempt a trial of passage today with MET today. Supportive management with IVF, Flomax, and pain management for now. Strain all urine. NPO after midnight in the event he needs a stent placed tomorrow. Will check an IVP in the morning. Thanks for the consult. Will continue to follow along with primary service for now.
[2017-10-23 15:13] VITALS: BP 135/84; PULSE 91; TEMP 36.7; O2SAT 95
[2017-10-23] MEDS: HYDROmorphone INJ 0.5 MG/0.5 ML SYR IV PRN (19:17)
[2017-10-23 19:45] VITALS: O2SAT 95
[2017-10-23] MEDS: ACETAMINOPHEN 325 MG TAB PO PRN (21:17)
[2017-10-23 23:02] VITALS: BP 148/93; PULSE 55; TEMP 36.8; O2SAT 96
[2017-10-24] MEDS: HYDROmorphone INJ 0.5 MG/0.5 ML SYR IV PRN (02:07)
[2017-10-24] MEDS: SODIUM CHLORIDE 0.9% 1000ML 1,000 ML IV SCH ×3 (04:36→10:41)
[2017-10-24] MEDS ORDERED: CIPROFLOXACIN 400MG / 200ML D5W IV ONE (06:00)
[2017-10-24 07:20] LABS: HEMATOCRIT 37.9 % (42-52); HEMOGLOBIN 12.2 g/dL (14.0-18.0); MEAN CELL VOLUME 92.4 fL (80-100); MEAN CORPUSCULAR HEMOGLOBIN 29.8 pg (25-34); MEAN CORPUSCULAR HGB CONC 32.2 g/dl (32-36); MEAN PLATELET VOLUME 12.5 fL (7.4-10.4); PLATELET COUNT 145 K/uL (130-400); RED CELL DISTRIBUTION WIDTH CV 12.8 % (11.5-14.5); RED CELL DISTRIBUTION WIDTH SD 43.4 fL (36.4-46.3); WHITE BLOOD COUNT 4.31 K/uL (4.8-10.8)
[2017-10-24 07:34] VITALS: BP 156/96; PULSE 71; TEMP 36.6; O2SAT 96
[2017-10-24 07:58] LABS: BASO % 0.2 %; BASO ABS # 0.01 K/uL (0-0.2); EOS % 5.3 %; EOS ABS # 0.23 K/uL (0-0.5); LYMPH % 56.6 %; LYMPH ABS # 2.44 K/uL (1.2-3.4); MONO % 6.3 %; MONO ABS # 0.27 K/uL (0.11-0.59); NEUT % 31.6 %; NEUT ABS # 1.36 K/uL (1.4-6.5)
[2017-10-24] MEDS: TAMSULOSIN HCL 0.4 MG CAP PO SCH (08:04)
[2017-10-24 08:06] LABS: CALCIUM 8.4 mg/dl (8.5-10.1); CREATININE 1.64 mg/dl (0.60-1.40); POTASSIUM 3.8 mmol/L (3.5-5.1)
[2017-10-24] MEDS ORDERED: OPTIRAY 300 IV PRN (08:45)
[2017-10-24] MEDS: HEPARIN SOD 5000 UNIT/0.5 ML CARP SQ SCH (10:43)
--- NOTE | 2017-10-24 10:57 | DIAGNOSTIC IMAGING REPORT ---
IVP W/OR W/O TOMOGRAMS CLINICAL HISTORY: 42 years-old Male presenting with ? distal left ureteral stone . TECHNIQUE: An abdominal fire operations forester radiograph is performed. IVP pyelogram was then performed following the IV administration of 100 mL of Optiray 320, tomographic images are acquired in the corticomedullary and excretory phases of enhancement. Overhead views of the renal collecting system and bladder were obtained in multiple obliquities both pre and post void. COMPARISON: Plain radiograph from 10/22/[address] from 10/18/2017. FINDINGS: Initial radiograph demonstrates persistent pelvic phleboliths and calcification in the region of the distal left ureter. No radiographically apparent renal calculi, which correlates with the presence of no renal calculi on recent CT. Moderate stool burden. No bowel obstruction or gross free air. Postcontrast imaging demonstrates poor opacification of the urinary collecting systems and suboptimal evaluation of the kidneys and ureters. Mild left pelvocaliectasis and mild prominence of the left ureter in comparison to the right. Opacification of the left ureter abruptly stops at the level of the suspected distal left ureteral calculus. Incomplete clearance of contrast on post void imaging. The bladder demonstrates significant emptying though incomplete. IMPRESSION: 1. Incomplete obstruction of the distal left ureter secondary to the presence of a calculus. Notably, this examination is suboptimal given poor opacification of the urinary collecting systems. Electronically signed by: Christopher Zhao M.D. 10/24/2017 10:55 AM Dictated Date/Time: 10/24/2017 10:51 AM
--- NOTE | 2017-10-24 11:02 | History & Physical Bridge Note ---
H&P Re-Evaluation Bridge Note: I have examined the patient, reviewed the History & Physical and in the interval since the performance of the History & Physical I have noted the following changes of clinical significance: No changes noted
--- NOTE | 2017-10-24 11:04 | Progress Note ---
Progress Note Date of Service Oct 24, 2017. Progress Note Patient is afebrile vital signs are stable Says he has intermittent pain on and off but is not to severe. It and IVP today which shows again mild obstruction from what appears to be a distal left ureteral calculus. I gave him options today including continued observation with trial of passage with medical expulsive therapy or go to the OR for ureteroscopy laser lithotripsy stent he would like to have the stone removed the procedure was described in detail including the risks and benefits. We will go ahead and schedule him for the operating room
[2017-10-24] MEDS ORDERED: PROPOFOL IV EMULSION 10 MG/ML 20 ML VIAL IV ONE (11:14)
[2017-10-24] MEDS ORDERED: DEXAMETHASONE SOD INJ 4 MG/ML VIAL ONE (11:14)
[2017-10-24] MEDS ORDERED: LIDOCAINE HCL 2% 2 ML VIAL (20MG/ML) ONE (11:14)
[2017-10-24] MEDS ORDERED: ONDANSETRON INJ 2 MG/ML 2 ML VIAL ONE (11:14)
[2017-10-24] MEDS ORDERED: FENTANYL CITRATE INJ 50 MCG/1 ML 2 ML VIAL ONE ×2 (11:14→11:53)
[2017-10-24] MEDS ORDERED: MIDAZOLAM HCL 1 MG/ML 2ML VIAL ONE (11:14)
[2017-10-24] MEDS ORDERED: EpHEDrine SULFATE INJ 50 MG/ML AMP IV PRN (11:15)
[2017-10-24] MEDS ORDERED: MEPERIDINE HCL 25 MG/ML CARP IV PRN (11:15)
[2017-10-24] MEDS ORDERED: ONDANSETRON INJ 2 MG/ML 2 ML VIAL IV PRN (11:15)
[2017-10-24] MEDS ORDERED: FENTANYL CITRATE INJ 50 MCG/1 ML 2 ML VIAL IV PRN (11:15)
[2017-10-24] MEDS ORDERED: LABETALOL HCL IV 5 MG/ML 20ML IV PRN (11:15)
[2017-10-24] MEDS ORDERED: HYDROmorphone INJ 1 MG/ML SYR IV PRN (11:15)
[2017-10-24] MEDS ORDERED: ATROPINE SULFATE 0.1 MG/ML 5ML SYR IV PRN (11:15)
[2017-10-24] MEDS ORDERED: Cysto-Conray II 17.2% 250ML BOTTLE ONE (11:19)
[2017-10-24] MEDS ORDERED: CIPROFLOXACIN 400MG / 200ML D5W ONE (11:39)
--- NOTE | 2017-10-24 12:46 | [facility] Operative Report ---
Operative Report Operative Date Oct 24, 2017. Pre-Operative Diagnosis Left distal ureteral calculus Post-Operative Diagnosis Left distal ureteral calculus Procedure(s) Performed Cystoscopy, Left Ureteroscopy, Left Ureteral Stent Placement, Laser Lithotripsy and Basket extraction fragments Surgeon Dr. Castaneda Fixed Wing Aircraft Flight Engineer Surgeon(s) none Estimated Blood Loss 0 cc Findings Cystoscopic exam reveals a normal anterior urethra. 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 Ureteroscopy showed a stone in the distal ureter. Specimens none per surgeon Drains 6f multi length left stent Anesthesia Type General Complication(s) none Disposition yes Surgical ICU Indications Patient is a 42-year-old black male with a distal left ureteral stone who failed outpatient medical expulsion therapy. He was having significant pain so is being brought down for stone extraction and stent Description of Procedure After the induction of an adequate general anesthetic and appropriate timeout patient was placed in the dorsolithotomy position. Lower abdomen and genitalia were prepped with Hibiclens and draped in a sterile fashion. Next using a 22 Pakistani scope routine cystoscopic exam was performed to the level of the bulbar stricture. I was able to gently dilate the stricture with the beak of the scope. Bladder was then inspected there were no bladder tumors seen. Next under fluoroscopic guidance 0.03 guidewire was passed up the left ureter to position in the renal pelvis. Next the balloon dilator was passed over the guidewire and the intramural tunnel was dilated to 18 Pakistani until all wasting was gone. The balloon dilator was then removed rigid ureteroscopy was done to the level of the stone. Next using a holmium laser the stone was fragmented into multiple small pieces. One of the larger pieces was basketed and dropped into the bladder. After completing the stone extraction the ureteroscope was removed Pollick catheter was threaded over the guidewire and a left retrograde pyelogram was performed. Guidewire was then rethreaded to the Pollack catheter and the Pollick catheter was removed the guidewire was then rethreaded to the cystoscope and a 6 Pakistani multilength stent was passed up the left ureter under fluoroscopic guidance to position in the renal pelvis guidewire was removed there was a good curl at the bladder level. Patient's bladder was then drained cystoscope and sheath removed all needle sponge and instrument counts were correct at the end of the case patient tolerated the procedure well and was taken recovery room in stable condition I attest to the content of the Intraoperative Record and any orders documented therein. Any exceptions are noted below.
--- NOTE | 2017-10-24 12:48 | DIAGNOSTIC IMAGING REPORT ---
RETROGRADE INCLUDES KUB CLINICAL HISTORY: 42 years-old Male presenting with CYSTO. TECHNIQUE: 1 fluoroscopic spot image(s) obtained as part of an intraoperative procedure. COMPARISON: IVP from 10/24/2017. FINDINGS/IMPRESSION: A left ureteral stent was placed. Please see surgical report for further details. Dose area product (mGy.cm^2): 5241.6. Fluoroscopy time: 84.7 seconds. Number of fluoroscopic spot images: 1. Electronically signed by: Christopher Zhao M.D. 10/24/2017 12:47 PM Dictated Date/Time: 10/24/2017 12:46 PM
[2017-10-24 13:40] VITALS: BP 149/94; PULSE 52; TEMP 36.3; O2SAT 99
[2017-10-24 13:46] VITALS: O2SAT 99
[2017-10-24 13:47] VITALS: O2SAT 99
--- NOTE | 2017-10-24 14:15 | Anesthesiology Progress Note ---
Anesthesia Post Op Note Date & Time Oct 24, 2017 at 14:15 Vital Signs Pain Intensity: 0.0 Vital Signs Past 12 Hours Date Time Temp Pulse Resp B/P (MAP) Pulse Ox O2 Delivery O2 Flow Rate FiO2 10/24/17 13:47 99 Room Air 10/24/17 13:46 99 Room Air 10/24/17 13:40 36.3 52 16 149/94 (112) 99 Room Air 10/24/17 13:25 52 14 147/88 96 Room Air 10/24/17 13:15 36.8 56 16 133/95 98 Room Air 10/24/17 13:05 100 12 124/84 95 Room Air 10/24/17 12:55 61 15 117/78 97 Oxymask 10 10/24/17 12:45 66 13 115/84 99 Oxymask 10 10/24/17 12:39 36.7 71 20 108/74 100 Oxymask 10 10/24/17 08:17 Room Air 10/24/17 07:34 36.6 71 16 156/96 (116) 96 Room Air Notes Mental Status: alert / awake / arousable, participated in evaluation Pt Amnestic to Procedure: Yes Nausea / Vomiting: adequately controlled Pain: adequately controlled Airway Patency, RR, SpO2: stable & adequate BP & HR: stable & adequate Hydration State: stable & adequate Anesthetic Complications: no major complications apparent
[2017-10-24 15:58] VITALS: BP 146/90; PULSE 60; TEMP 36.3; O2SAT 98
[2017-10-24] MEDS ORDERED: OXYC1TAB3 PO (16:51)
[2017-10-24] MEDS ORDERED: ACET-1047 PO (16:51)
[2017-10-24] MEDS ORDERED: FLM4 PO (16:51)
--- NOTE | 2017-10-24 16:54 | Discharge Instructions ---
Discharge Instructions Date of Service Oct 24, 2017. Admission Reason for Admission: Renal Colic Discharge Discharge Diagnosis / Problem: Ureteral kidney stone removed today with stent placed Discharge Goals Goal(s): Decrease discomfort, Improve function Activity Recommendations Activity Limitations: resume your previous activity . Instructions / Follow-Up Instructions / Follow-Up Urology will call you to schedule a followup appointment. Ok to use tylenol for mild pain. It pain is tolerable though, try not to take as usp use can cause liver damage I also gave you 10 pills of oxycodone. Only use for severe pain. Follow up with primary care provider in about a week for repeat testing of kidney function. Drink plenty of water, will help with kidneys and also prevent stones. Current Hospital Diet Patient's current hospital diet: Regular Diet Discharge Diet Recommended Diet: Regular Diet Procedures Procedures Performed: Cystoscopy, Left Ureteroscopy, Left Ureteral Stent Placement, Laser Lithotripsy and Basket extraction fragments Pending Studies Studies pending at discharge: no Medical Emergencies . Who to Call and When: Medical Emergencies: If at any time you feel your situation is an emergency, please call 911 immediately. . Non-Emergent Contact Non-Emergency issues call your: Primary Care Provider Call Non-Emergent contact if: you have any medication questions . . "Provider Documentation" section prepared by Beka Solares. .
[2017-10-24 17:00] VITALS: BP 146/90; PULSE 60; TEMP 36.3; O2SAT 98
--- NOTE | 2017-10-24 17:23 | Discharge Summary ---
Discharge Summary Date of Service Oct 24, 2017. Discharge Summary Admission Date: Oct 22, 2017 at 19:28 Discharge Date: Oct 24, 2017 Discharge Disposition: Home Principal Diagnosis: L Nephrolithiasis S/P Extraction Procedures: (RENAL)RETROPERITON COMP FINDINGS: Right kidney: Normal echogenicity of renal parenchyma. Right kidney measures 11.1 cm. No hydronephrosis. No convincing evidence of calculus or mass. Normal perfusion. Left kidney: Normal echogenicity of renal parenchyma. Left kidney measures 12.4 cm. Mild calyectasis. No convincing evidence of calculus or mass. Normal perfusion. Bladder: No bladder wall thickening. Left ureteral jet nonvisualized. Other: None. IMPRESSION: 1. Minimal left hydronephrosis with nonvisualization of the left ureteral jet suggesting obstruction. IVP W/OR W/O TOMOGRAMS FINDINGS: Initial radiograph demonstrates persistent pelvic phleboliths and calcification in the region of the distal left ureter. No radiographically apparent renal calculi, which correlates with the presence of no renal calculi on recent CT. Moderate stool burden. No bowel obstruction or gross free air. Postcontrast imaging demonstrates poor opacification of the urinary collecting systems and suboptimal evaluation of the kidneys and ureters. Mild left pelvocaliectasis and mild prominence of the left ureter in comparison to the right. Opacification of the left ureter abruptly stops at the level of the suspected distal left ureteral calculus. Incomplete clearance of contrast on post void imaging. The bladder demonstrates significant emptying though incomplete. IMPRESSION: 1. Incomplete obstruction of the distal left ureter secondary to the presence of a calculus. Notably, this examination is suboptimal given poor opacification of the urinary collecting systems. RETROGRADE INCLUDES KUB FINDINGS/IMPRESSION: A left ureteral stent was placed. Please see surgical report for further details. Dose area product (mGy.cm^2): 5241.6. Fluoroscopy time: 84.7 seconds. Number of fluoroscopic spot images: 1. Consultations: 1. Urology Medication Reconciliation New Medications: Oxycodone Immediate Rel Tab (Roxicodone Ir) 5 Mg Tab 1 TAB PO BID PRN for severe pain for 5 Days, #10 TAB Acetaminophen (Mapap) 325 Mg Tab 650 MG PO Q6H PRN for Pain or Fever for 20 Days, #160 TAB Take for mild pain. Tamsulosin HCl (Tamsulosin HCl) 0.4 Mg Cap 0.4 MG PO DAILY for 30 Days, #30 CAP 0 Refills Discontinued Medications: Tamsulosin Hcl (Flomax) 0.4 Mg Cap 0.4 MG PO DAILY, #10 CAP Discharge Exam Review of Systems: Constitutional: No fever, No chills ENT: No nasal symptoms, No sore throat Respiratory: No cough, No shortness of breath Cardiovascular: No chest pain Abdomen: + pain (L flank), No nausea, No vomiting, No diarrhea, No constipation Genitourinary - Male: + hematuria (after stent - improving), No dysuria Hematologic / Lymphatic: No abnormal bleeding/bruising Integumentary: No rash Physical Exam: General Appearance: WD/WN, no apparent distress Eyes: sclerae normal ENT: hearing grossly normal Neck: supple, no JVD, trachea midline Respiratory/Chest: lungs clear, normal breath sounds, no respiratory distress, no accessory muscle use Cardiovascular: regular rate, rhythm, no gallop, no murmur Abdomen / GI: normal bowel sounds, non tender, soft, + pertinent finding (+ L CVA tenderness) Extremities: no pedal edema Neurologic/Psychiatric: alert, oriented x 3 Skin: normal color Hospital Course ADMISSION: 42-year-old generally healthy male who had evidence of a 4 mm left ureteral stone on October [address] scan the patient had persistence of colicky left-sided pain associated with nausea since that time the pain has been intense causing him to stop is doing and curl up in a ball having difficulty eating for mild nausea the patient however on most recent imaging cannot confirm or refute the fact that the stone may have moved. The patient has had a recent ultrasound showing minimal left hydronephrosis. Patient be brought into our facility for failure to manage renal colic pain hydration and evaluation by urology. HOSPITAL COURSE: Mr. Grove was admitted for left nephrolithiasis who is S/P cystoscopy, left ureteroscopy, left ureteral stent placement, and laser lithotripsy and basket extraction on 10/24. Patient reporting adequate pain control. He will be maintained on anti-inflammatories and opiates for severe pain. He did experience some mild dysuria and hematuria after stent placement which is improving. He will continue Flomax daily to assist with symptom control. During admission, his creatinine was mildly elevated at 1.6 and should be continued to be monitored. Likely this is in the setting of his renal stone and mild hydronephrosis and should ultimately resolve. Patient will need follow-up with urology for further management. Total Time Spent: Greater than 30 minutes This includes examination of the patient, discharge planning, medication reconciliation, and communication with other providers. Discharge Instructions Please refer to the electronic Patient Visit Report (Discharge Instructions) for additional information. Additional Copies To Heather Lujan
== END 2017-10-24 17:20 | disposition home or self-care (01) | DRG 670 ==
LOC: C.EDB 15:47 → C.MSN 19:28 → ENRESERV 19:37
PROVIDERS: ADMIT Internal Medicine; ATTEND Internal Medicine
PROC: 0T778DZ Dilation of Left Ureter with Intraluminal Device, Via Natural or Artificial Opening Endoscopic (ICD-10-PCS; principal; 2017-10-24 11:30)
PROC: 0T7D8ZZ Dilation of Urethra, Via Natural or Artificial Opening Endoscopic (ICD-10-PCS; principal; 2017-10-24 11:30)
PROC: 0TC78ZZ Extirpation of Matter from Left Ureter, Via Natural or Artificial Opening Endoscopic (ICD-10-PCS; principal; 2017-10-24 11:30)
PROC: 0TF78ZZ Fragmentation in Left Ureter, Via Natural or Artificial Opening Endoscopic (ICD-10-PCS; principal; 2017-10-24 11:30)
DX: N20.1 Calculus of ureter (principal); N23 Unspecified renal colic; N35.9 Urethral stricture, unspecified; Z88.0 Allergy status to penicillin; Z88.5 Allergy status to narcotic agent; Z83.3 Family history of diabetes mellitus; Z82.49 Family history of ischemic heart disease and other diseases of the circulatory system

== ENCOUNTER 2017-10-26 23:20 | Emergency (ER) | payer OTHER ==
[~2017-10-26] VITALS: Ht 185.4 cm; Wt 102.7 kg
[~2017-10-26 23:20] MED LIST changes: +ACET-1047 PO; +FLM4 PO; +OXYC1TAB3 PO; -TAMS0.4C38 PO
[2017-10-26 23:29] VITALS: Ht 185.4 cm; Wt 102.7 kg
[2017-10-26] MEDS ORDERED: SODIUM CHLORIDE 0.9% 500ML 500 ML IV STA (23:57)
[2017-10-27] MEDS ORDERED: FENTANYL CITRATE INJ 50 MCG/1 ML 2 ML VIAL IV STA (00:04)
[2017-10-27] MEDS ORDERED: TAMSULOSIN HCL 0.4 MG CAP PO ONE (00:15)
--- NOTE | 2017-10-27 00:16 | EMERGENCY ROOM VISIT NOTE ---
History Report prepared by Holly: Bhavna Gaspar Under the Supervision of: Dr. Bria Teran D.O. First contact with patient: 23:40 Chief Complaint: FLANK PAIN Stated Complaint: KIDNEY HURTS W/STENT History of Present Illness The patient is a 42 year old male who presents to the Emergency Room with complaints of worsening flank pain starting this evening. The patient states that he was here four days ago for a kidney stone. He states that he had taken 2 Hydrocodone in 2 hours and it did nothing. He states that they gave him more medication when he was here for the pain, but reports it didn't work. He states that three days ago the doctors offered him to have surgery and he decided to. He reports that he had a stent placed and the stone pulsated out two days ago. He states that he went home and was passing blood from the stent. He reports yesterday that the blood was darker, but he could still see through it. The patient reports that he started to have a sharp pain in his stomach this evening. He reports that he thought it was from being constipated since he had not moved his bowels since taking all the Hydrocodone 4 days ago. He reports that he drank some tea and the pain went away. The patient states that he started to have the pain in his back in his kidney area. He reports that it was a 10/10 in pain. He states that about an hour ago he took two Hydrocodone and the pain is now an 8/10 in severity. The patient complains of passing clots and pain with urination. He states that it hurts low when the urine is coming out. The patient denies fevers, chills, nausea, and vomiting. Source of History: patient Onset: this evening Position: other (flank pain) Symptom Intensity: 8/10 Quality: sharp Timing: worsening Modifying Factors (Relieving): other (Hydrocodone) Associated Symptoms: No fevers, No chills, No nausea, No vomiting Note: The patient complains of passing clots and pain with urination. Review of Systems See HPI for pertinent positives & negatives. A total of 10 systems reviewed and were otherwise negative. Past Medical & Surgical Medical Problems: (1) Kidney stone (2) Renal colic (3) Sleep apnea Surgical Problems: (1) History of ureter stent (2) Hx of lithotripsy Family History FH: cancer FH: diabetes mellitus High blood pressure Social History Smoking Status: Never Smoker Marital Status: Housing Status: lives with family Occupation Status: employed Current/Historical Medications Scheduled Tamsulosin HCl (Tamsulosin HCl), 0.4 MG PO DAILY Scheduled PRN Acetaminophen (Mapap), 650 MG PO Q6H PRN for Pain or Fever Oxycodone Immediate Rel Tab (Roxicodone Ir), 1 TAB PO BID PRN for severe pain Allergies Coded Allergies: Penicillins (Verified Allergy, Unknown, hives, 10/27/17) Tramadol (Unverified Adverse Reaction, Unknown, VOMITING, 10/27/17) Physical Exam Vital Signs Date Time Temp Pulse Resp B/P (MAP) Pulse Ox O2 Delivery O2 Flow Rate FiO2 10/27/17 04:56 65 18 130/70 100 10/27/17 03:56 60 16 135/74 99 Room Air 10/27/17 01:25 36.7 57 16 149/86 99 Room Air 10/26/17 23:29 36.7 57 16 159/107 97 Room Air Physical Exam GENERAL: alert, well appearing, well nourished, no distress, non-toxic EYE EXAM: normal conjunctiva, PERRL and EOM's grossly intact OROPHARYNX: no exudate, no erythema, lips, buccal mucosa, and tongue normal and mucous membranes are moist NECK: supple, no nuchal rigidity, no adenopathy, non-tender LUNGS: Clear to auscultation. Normal chest wall mechanics HEART: no murmurs, S1 normal and S2 normal ABDOMEN: abdomen soft, dull tenderness to percussion, normo-active bowel sounds , no masses, no rebound or guarding. BACK: Back is symmetrical on inspection and there is no deformity, no midline tenderness, no CVA tenderness. SKIN: no rashes and no bruising UPPER EXTREMITIES: upper extremities are grossly normal. LOWER EXTREMITIES: No pitting edema. NEURO EXAM: Normal sensorium, cranial nerves II-XII grossly intact, normal speech, no gross weakness of arms, no gross weakness of legs. Medical Decision & Procedures ER Provider Diagnostic Interpretation: Radiology results have been interpreted by the radiologist and reviewed by me. US RENAL: Left ureter stent identified. No hydronephrosis. Question left prominent column of [place]. Upper renal pole cortical thinning measuring up to 6 mm. Bilateral ureteral jets identified. Radiologist: Kelechi Chicas MD Study ready at 03:42 and initial results transmitted at 04:20. Laboratory Results 10/27/17 00:31 Red Blood Count 4.15, Mean Corpuscular Volume 90.6, Mean Corpuscular Hemoglobin 31.1, Mean Corpuscular Hemoglobin Concent 34.3, Mean Platelet Volume 11.5, Neutrophils (%) (Auto) 38.8, Lymphocytes (%) (Auto) 51.2, Monocytes (%) (Auto) 6.5, Eosinophils (%) (Auto) 3.1, Basophils (%) (Auto) 0.2, Neutrophils # (Auto) 2.22, Lymphocytes # (Auto) 2.93, Monocytes # (Auto) 0.37, Eosinophils # (Auto) 0.18, Basophils # (Auto) 0.01 10/27/17 00:31 Test 10/27/17 00:31 White Blood Count 5.72 K/uL (4.8-10.8) Red Blood Count 4.15 M/uL (4.7-6.1) Hemoglobin 12.9 g/dL (14.0-18.0) Hematocrit 37.6 % (42-52) Mean Corpuscular Volume 90.6 fL (80-100) Mean Corpuscular Hemoglobin 31.1 pg (25-34) Mean Corpuscular Hemoglobin Concent 34.3 g/dl (32-36) Platelet Count 189 K/uL (130-400) Mean Platelet Volume 11.5 fL (7.4-10.4) Neutrophils (%) (Auto) 38.8 % Lymphocytes (%) (Auto) 51.2 % Monocytes (%) (Auto) 6.5 % Eosinophils (%) (Auto) 3.1 % Basophils (%) (Auto) 0.2 % Neutrophils # (Auto) 2.22 K/uL (1.4-6.5) Lymphocytes # (Auto) 2.93 K/uL (1.2-3.4) Monocytes # (Auto) 0.37 K/uL (0.11-0.59) Eosinophils # (Auto) 0.18 K/uL (0-0.5) Basophils # (Auto) 0.01 K/uL (0-0.2) RDW Standard Deviation 42.0 fL (36.4-46.3) RDW Coefficient of Variation 12.7 % (11.5-14.5) Immature Granulocyte % (Auto) 0.2 % Immature Granulocyte # (Auto) 0.01 K/uL (0.00-0.02) Urine Color YELLOW Urine Appearance CLEAR (CLEAR) Urine pH 6.5 (4.5-7.5) Urine Specific [place] 1.006 (1.000-1.030) Urine Protein 1+ (NEG) Urine Glucose (UA) NEG (NEG) Urine Ketones NEG (NEG) Urine Occult Blood 3+ (NEG) Urine Nitrite NEG (NEG) Urine Bilirubin NEG (NEG) Urine Urobilinogen NEG (NEG) Urine Leukocyte Esterase SMALL (NEG) Urine WBC (Auto) 1-5 /hpf (0-5) Urine RBC (Auto) >30 /hpf (0-4) Urine Hyaline Casts (Auto) 0 /lpf (0-5) Urine Epithelial Cells (Auto) 5-10 /lpf (0-5) Urine Bacteria (Auto) NEG (NEG) Anion Gap 9.0 mmol/L (3-11) Est Creatinine Clear Calc Drug Dose 106.1 ml/min Estimated GFR () 91.8 Estimated GFR (Non- 79.2 BUN/Creatinine Ratio 14.1 (10-20) Calcium Level 8.8 mg/dl (8.5-10.1) Total Bilirubin 1.0 mg/dl (0.2-1) Aspartate Amino Transf (AST/SGOT) 30 U/L (15-37) Alanine Aminotransferase (ALT/SGPT) 45 U/L (12-78) Alkaline Phosphatase 64 U/L (45-117) Total Protein 7.0 gm/dl (6.4-8.2) Albumin 3.4 gm/dl (3.4-5.0) Globulin 3.6 gm/dl (2.5-4.0) Albumin/Globulin Ratio 0.9 (0.9-2) Laboratory results per my review. Medications Administered Medications (Trade) Dose Ordered Sig/Mynor Route Start Time Stop Time Status Last Admin Dose Admin Sodium Chloride 500 ml @ 999 mls/hr Q31M STAT IV 10/26/17 23:57 10/27/17 00:27 DC 10/27/17 00:36 999 MLS/HR Fentanyl Citrate (Fentanyl Inj) 100 mcg NOW STAT IV 10/27/17 00:04 10/27/17 00:05 DC 10/27/17 00:37 100 MCG Tamsulosin HCl (Flomax Cap) 0.4 mg NOW ONCE PO 10/27/17 00:15 10/27/17 00:16 DC 10/27/17 00:37 0.4 MG Ketorolac Tromethamine (Toradol Inj) 15 mg NOW STAT IV 10/27/17 02:09 10/27/17 02:10 DC 10/27/17 02:24 15 MG ECG Per My Interpretation Indication: back/shoulder pain Rate (beats per minute): 56 Rhythm: sinus bradycardia Findings: no acute ischemic change, no ectopy, other (normal axis, normal intervals) ED Course 2347: The patient was evaluated in room B3B. A complete history and physical exam was performed. 2357: Ordered NSS 500 ml @ 999 mls/hr IV. 0004: Ordered Fentanyl Citrate 100 mcg IV. 0015: Ordered Flomax Cap 0.4 mg PO. 0207: I reevaluated the patient and he is feeling a little better. He passed a clot in his urine while here. 0209: Ordered Toradol Inj 15 mg IV. 0423: Upon reevaluation, the patient is feeling better. I discussed the findings and the treatment plan with the patient. He verbalizes agreement and understanding. The patient was discharged home. Medical Decision Differential diagnosis: Etiologies such as renal colic, appendicitis, diverticulitis, mesenteric ischemia, aortic pathology, infections, inflammatory bowel disease, PUD, biliary pathology, UTI, as well as others were entertained. Patient well-appearing here despite complaints of pain. Labs and imaging reassuring. No apparent postprocedural complications. No renal dysfunction or hydronephrosis. Patient's description of gross hematuria at home here appears to be more of a pink tinge with a small clot noted on specimen provided. Patient appears well-hydrated. There is no vomiting or fevers. I do not suspect pyelonephritis, periureteral abscess, ureteral perforation, bacteremia/ sepsis. Patient was starting to show improvement here after having taken 2 of his hydrocodone instead of one at home. I discussed with patient that that is reasonable to take 2 at a time. Discussed with him complications and adverse reactions including constipation which she was experiencing also, discussed ways to treat this. Discussed close follow-up with urology and stent removal. Patient states he is to see them later on this week to have his stent removed. I do not suspect additional GI pathology or vascular pathology. Patient's H&H stable, not orthostatic, no other systemic symptoms. Patient improved here with additional treatment. Discussed symptoms to watch and return for, he verbalized understanding and was agreeable with plan. Medication Reconcilliation Current Medication List: was personally reviewed by me Blood Pressure Screening Patient's blood pressure: Elevated blood pressure Blood pressure disposition: Elevated BP felt to be situational Impression Primary Impression: Left flank pain Additional Impression: Renal colic Scribe Attestation The scribe's documentation has been prepared under my direction and personally reviewed by me in its entirety. I confirm that the note above accurately reflects all work, treatment, procedures, and medical decision making performed by me. Departure Information Dispostion Home / Self-Care Referrals No Doctor, Assigned (PCP) Forms HOME CARE DOCUMENTATION FORM, IMPORTANT VISIT INFORMATION Patient Instructions My [facility] Additional Instructions Please call and follow-up with your urologist. You may take two of your stronger pain medication (hydrocodone) at a time. Do not take the stronger pain medicine and drive. Please monitor for constipation. Please consider using a daily stool softener or miralax to help prevent constipation. Please continue drinking plenty of water. If you have any worsening pain, are unable to urinate, develop fevers/chills, nausea/vomiting, or you have any other new or concerning symptoms, please return to the emergency room. Your urine should slowly begin to lighten up and have less blood and clots in it since your procedure. Problem Qualifiers
[2017-10-27 00:42] LABS: HEMATOCRIT 37.6 % (42-52); HEMOGLOBIN 12.9 g/dL (14.0-18.0); MEAN CELL VOLUME 90.6 fL (80-100); MEAN CORPUSCULAR HEMOGLOBIN 31.1 pg (25-34); MEAN CORPUSCULAR HGB CONC 34.3 g/dl (32-36); MEAN PLATELET VOLUME 11.5 fL (7.4-10.4); PLATELET COUNT 189 K/uL (130-400); RED CELL DISTRIBUTION WIDTH CV 12.7 % (11.5-14.5); WHITE BLOOD COUNT 5.72 K/uL (4.8-10.8)
[2017-10-27 01:02] LABS: ALBUMIN 3.4 gm/dl (3.4-5.0); CALCIUM 8.8 mg/dl (8.5-10.1); CREATININE 1.13 mg/dl (0.60-1.40); POTASSIUM 3.9 mmol/L (3.5-5.1)
[2017-10-27 01:25] VITALS: TEMP 36.7
[2017-10-27 01:25] LABS: BASO % 0.2 %; BASO ABS # 0.01 K/uL (0-0.2); EOS % 3.1 %; EOS ABS # 0.18 K/uL (0-0.5); IG# 0.01 K/uL (0.00-0.02); LYMPH % 51.2 %; LYMPH ABS # 2.93 K/uL (1.2-3.4); MONO % 6.5 %; MONO ABS # 0.37 K/uL (0.11-0.59); NEUT % 38.8 %; NEUT ABS # 2.22 K/uL (1.4-6.5)
[2017-10-27] MEDS ORDERED: KETOROLAC TROMETHAMINE 30 MG/ML VIAL IV STA (02:09)
[2017-10-27 04:56] VITALS: BP 130/70; PULSE 65; O2SAT 100
--- NOTE | 2017-10-27 07:10 | DIAGNOSTIC IMAGING REPORT ---
EXAMINATION: RENAL ULTRASOUND CLINICAL HISTORY: Left renal obstruction status post stent placement. COMPARISON STUDY: 10/22/2017 FINDINGS: The right kidney measures 10.2 cm. The left kidney measures 10.8 cm. There is no evidence of hydronephrosis. There are no renal masses. No bladder abnormalities are visualized. Bilateral ureteral jets were visualized. A left-sided stent was visualized. IMPRESSION : A left-sided nephroureteral stent was visualized. No evidence of significant hydronephrosis. Electronically signed by: Jimenez Meier M.D. 10/27/2017 7:09 AM Dictated Date/Time: 10/27/2017 7:06 AM
== END 2017-10-27 04:57 | disposition home or self-care (01) ==
LOC: C.EDB 23:21
DX: N23 Unspecified renal colic (principal); Z87.442 Personal history of urinary calculi; G47.30 Sleep apnea, unspecified; Z80.9 Family history of malignant neoplasm, unspecified; Z83.3 Family history of diabetes mellitus; Z82.49 Family history of ischemic heart disease and other diseases of the circulatory system; Z79.899 Other long term (current) drug therapy; Z88.0 Allergy status to penicillin; Z88.5 Allergy status to narcotic agent